=== PATIENT | female | born 1930 | race Caucasian/White ===

== ENCOUNTER → 2016-10-15 | Outpatient (CLI) | payer MEDICARE, BC ==
--- NOTE | 2016-10-16 06:49 | BD ---
EXAMINATION TYPE: MG DEXA axial skeleton. DATE OF EXAM: 10/15/2016 COMPARISON: NONE CLINICAL HISTORY: Osteoporosis with treatment Height: 60 Weight: 139.1 FRAX RISK QUESTIONS: Alcohol (3 or more units per day): no Family History (Parent hip fracture): no Glucocorticoids (More than 3mos): no (Ex: prednisone, prednisolone, methylprednisolone, dexamethasone, and hydrocortisone). History of Fracture in Adulthood: no Secondary Osteoporosis: 1. Type 1 Diabetes: no 2. Hyperthyroidism: no 3. Menopause before 45: 4. Malnutrition: no 5. Chronic liver disease: no Rheumatoid Arthritis: no Current Tobacco Use: no RISK FACTORS HISTORY OF: Hip Fracture (Right/Left): no Spine Fracture: no History of Wrist Fracture: no Surgery to Spine/Hip(right/left)/Wrist (right/left): no Family History of Osteoporosis: no Active: yes Diet low in dairy products/other sources of calcium: no Postmenopausal woman: age 55 Lost more than 2 inches in height since high school: yes Frequent falls: no Poor Health: no Hyperparathyroidism: no Adrenal Insufficiency: no MEDICATIONS: blood pressure meds Additional History: EXAM MEASUREMENTS: Bone mineral densitometry was performed using the [employer] System. Bone mineral density as measured about the Lumbar spine is: ----- L1-L4(G/cm2): 1.289 T Score Values are as follows: ----- L2: 0.6 ----- L3: 1.6 ----- L4: 0.4 ----- L1-L4: 0.9 Bone mineral density has: decreased -0.8 % since study of: 12.21.2014 Bone mineral density about the R hip (g/cm2): 0.859 Bone mineral density about the L hip (g/cm2): 0.874 T Score values are as follows: -----R Neck: -1.3 -----L Neck: -1.2 -----R Total: -0.4 -----L Total: 0.5 Bone mineral density has: increased 0.2 % since study of: 12.21.2014 IMPRESSION: Osteopenia (T Score between -2.5 and -1 as noted by T score values). Bilateral hips. There is slightly increased risk of fracture and the patient may be considered for treatment. Re-Screen 2-5 years. NOTE: T-SCORE=SD OF THE YOUNG ADULT MEAN.
== END | disposition home or self-care (01) ==
LOC: RADBDWWP 10:42
PROVIDERS: ATTEND Family Medicine
DX: Z13.820 Encounter for screening for osteoporosis (principal); M85.88 Other specified disorders of bone density and structure, other site
CPT/HCPCS: 77080

== ENCOUNTER 2017-08-30 14:55 | Inpatient (IN) | payer MEDICARE, BC ==
[2017-08-30] MEDS ORDERED: SUCCINYLCHOLINE CHLORIDE VIAL 200 MG/10 ML VIAL IV STA (15:02)
[2017-08-30] MEDS ORDERED: ETOMIDATE 2 MG/ML 10 ML VIAL IVP STA (15:02)
[2017-08-30] MEDS ORDERED: PROPOFOL 1,000 MG in EMPTY BAG 1 BAG IV ONE (15:17)
--- NOTE | 2017-08-30 15:29 | XR ---
EXAMINATION TYPE: XR chest 1V portable DATE OF EXAM: 08/30/2017 COMPARISON: NONE HISTORY: Choking on a state. Airway obstruction. TECHNIQUE: Single frontal view of the chest is obtained. FINDINGS: Heart size is normal. There is endotracheal tube that has tip in good position 3.5 cm from the yuri. There is coarsening of interstitial pulmonary markings. There is no pleural effusion. Th ere are chest leads. IMPRESSION: Endotracheal tube is in good position. Pulmonary interstitial fibrosis. No heart failure .
[2017-08-30] MEDS ORDERED: NALOXONE 0.4 MG/ML 1 ML VIAL IV PRN ×2 (15:38→16:13)
--- NOTE | 2017-08-30 15:50 | ED ---
General Adult HPI - General Stated complaint: Choking Time Seen by Provider: 08/30/17 15:15 Source: EMS, RN notes reviewed, old records reviewed - History of Present Illness Initial comments: 87-year-old female brought in with concern for foreign body aspiration. Patient was eating steak, she began to choke, family called EMS. When EMS arrived patient was unable to speak. She will was breathing with normal oxygen saturation. According to EMS she did decompensate in route. They attempted the Heimlich maneuver, this was Unsuccessful. Patient's oxygen saturation dropped into the 70s. Upon arrival patient was on a nonrebreather she was awake but unable to speak. She did cough up a large piece of steak. Patient continued to have dyspnea and hypoxia. - Related Data Home Medications Medication Instructions Recorded Confirmed Ezetimibe [Zetia] 10 mg PO DAILY 08/30/17 08/30/17 Metoprolol Tartrate [Lopressor] 50 mg PO BID 08/30/17 08/30/17 Spironolact/Hydrochlorothiazid 1 tab PO DAILY 08/30/17 08/30/17 [Aldactazide 25-25 MG] amLODIPine [Norvasc] 5 mg PO DAILY 08/30/17 08/30/17 Allergies Allergy/AdvReac Type Severity Reaction Status Date / Time No Known Allergies Allergy Verified 08/30/17 16:11 Review of Systems ROS Statement: Those systems with pertinent positive or pertinent negative responses have been documented in the HPI. ROS Other: All systems not noted in ROS Statement are negative. General Exam General appearance: in distress Head exam: Present: atraumatic, normocephalic Eye exam: Present: normal appearance, PERRL, EOMI ENT exam: Present: normal oropharynx Neck exam: Present: normal inspection Respiratory exam: Present: decreased breath sounds (Decreased breath sounds on the right lung arias, good air entry on the left) Cardiovascular Exam: Present: regular rate, normal rhythm GI/Abdominal exam: Present: soft. Absent: distended, tenderness Extremities exam: Present: normal inspection, full ROM Back exam: Present: normal inspection, full ROM Neurological exam: Present: alert. Absent: motor sensory deficit Psychiatric exam: Present: anxious Skin exam: Present: warm, dry, intact Course Vital Signs 08/30/17 08/30/17 08/30/17 15:07 15:09 15:14 Temperature Pulse Rate 86 80 80 Respiratory 12 12 12 Rate Blood Pressure 133/66 166/77 163/77 O2 Sat by Pulse 82 L 91 L 93 L Oximetry 08/30/17 08/30/17 08/30/17 15:19 15:24 15:29 Temperature Pulse Rate 76 100 76 Respiratory Rate Blood Pressure 158/77 169/84 158/73 O2 Sat by Pulse 100 100 100 Oximetry 08/30/17 08/30/17 08/30/17 15:30 15:34 15:39 Temperature 97.3 F L Pulse Rate 76 78 72 Respiratory 12 Rate Blood Pressure 144/72 173/85 118/54 O2 Sat by Pulse 100 Oximetry 08/30/17 08/30/17 08/30/17 15:42 15:46 15:49 Temperature Pulse Rate 71 67 66 Respiratory Rate Blood Pressure 118/54 110/51 102/56 O2 Sat by Pulse 99 Oximetry - Reevaluation(s) Reevaluation #1: 08/30/17 16:24 Dr. King was able to perform successful bronchoscopy in the emergency department with large piece of fatty meat removed. Patient will remain intubated and admitted to the ICU. EKG Findings - EKG Comments: EKG Findings:: EKG: Sinus rhythm with PACs no ST segment elevation, rate of 76, MN interval 150, QRS duration 86, QTC 461 Procedures - Intubation Time Out Performed: Yes Sedative: Etomidate Mg Given: 20 Paralytic: Succinylcholine Mg Given: 80 Laryngoscope: fiber optic video scope Size: 1 Assist Device Used: fiber optic device ET Tube Size: 7.5 ET Tube Uncuffed: No Other Airway Intervention: Attempt at suctioning foreign body is unsuccessful Tube Secured Depth (cm): 22 Tube Secured Location: lips Tube Placement Confirmation: visualized tube passing through cords, no breath sounds over epigastrium, confirmation by capnometry Patient Tolerated Procedure: well Intubation Complications: none (Tracheal foreign body) Medical Decision Making - Medical Decision Making 87 yo female with airway obstruction. She does clearly large piece of steak on her own. However she remains hypoxic with minimal air entry into the right lung. Patient is intubated with flexible bronchoscope. There is a foreign body in the distal trachea and right mainstem bronchus. This is unable to be suctioned. Patient is intubated with return to normal oxygenation. Case is discussed with the pulmonary music educator Dr. King who is available for emergent bronchoscopy. Patient will be admitted to the ICU for respiratory support. Chest x-ray reviewed, satisfactory endotracheal intubation. No pneumothorax. Laboratory studies are pending. Critical Care Time Critical Care Time: Yes Total Critical Care Time: 35 Disposition Clinical Impression: Respiratory failure with hypoxia, Asphyxiation, foreign body, trachea Disposition: ADMITTED IP TO THIS [facility] Condition: Serious Is patient prescribed a controlled substance at d/c from ED?: No Decision to Admit Reason: Admit from EC Decision Date: 08/30/17 Decision Time: 15:50
--- NOTE | 2017-08-30 16:03 | P.CNPUL ---
History of Present Illness Consult date: 08/30/17 Reason for consult: dyspnea, hypoxemia, abnormal CXR/CT Chief complaint: Respiratory distress History of present illness: Pulmonary consult dated 08/30/2017 87-year-old female was brought into the emergency room by EMS. She apparently was eating steak at home she apparently choked on on the steak. She apparently had some respiratory distress at the time and EMS was called and brought into the emergency room. Here in the emergency room, she had significant hypoxemia. The patient apparently was able to cough up a portion of the steak but a portion of the steak was ordered that remained in the lung. Apparently was seen by the ER physician with the flexible bronchoscope. The patient was intubated in the emergency room by the ER physician. Patient's currently on the ventilator. Vent settings are the assist control mode rate of 12 tidal volume 350 FiO2 90% PEEP of 5. The patient's chest x-ray shows a area of abnormality in the right base. I don't really know much else about this patient. We'll have really any medical history on her surgical history meds ALLERGIES, etc. I called in the bronchoscopy team. I've also a BOARD OF DIRECTORS to come to the emergency room this in case I need some help. Review of Systems ROS unobtainable: due to endotracheal tube Past Medical History Past Medical History: Unable to Obtain History of Any Multi-Drug Resistant Organisms: Unobtainable Past Surgical History: Unable to Obtain Past Psychological History: Unable to Obtain Smoking Status: Unknown if ever smoked Past Alcohol Use History: Unable to Obtain Past Drug Use History: Unable to Obtain Medications and Allergies Home Medications Medication Instructions Recorded Confirmed Type Unable To Assess [Unable to Assess] 08/30/17 08/30/17 History Allergies Allergy/AdvReac Type Severity Reaction Status Date / Time Unable to Assess Allergy Verified 08/30/17 15:51 Physical Exam Osteopathic Statement: *. No significant issues noted on an osteopathic structural exam other than those noted in the History and Physical/Consult. Vitals: Vital Signs Temp Pulse Resp BP Pulse Ox 08/30/17 15:49 66 102/56 08/30/17 15:46 67 110/51 08/30/17 15:42 71 118/54 99 08/30/17 15:39 72 118/54 08/30/17 15:34 78 12 173/85 08/30/17 15:30 97.3 F L 76 144/72 100 08/30/17 15:29 76 158/73 100 08/30/17 15:24 100 169/84 100 08/30/17 15:19 76 158/77 100 08/30/17 15:14 80 12 163/77 93 L 08/30/17 15:09 80 12 166/77 91 L 08/30/17 15:07 86 12 133/66 82 L Intake and Output 08/30/17 08/30/17 08/30/17 06:59 14:59 22:59 Intake Total 7.955 Balance 7.955 Intake: Intake, IV Titration 7.955 Amount Propofol 1,000 mg In 7.955 Empty Bag 1 bag @ 10 MCG/ KG/MIN 3.7 mls/hr IV . Q24H [facility] Rx#:[id number] Other: Weight 61.689 kg Sedated, with an oral endotracheal tube placed, on the ventilator. HEENT examination is grossly unremarkable. Mucous membranes are moist. . Neck supple. Full range of motion. No adenopathy thyromegaly or neck vein distention. Cardiovascular examination reveals regular rhythm rate. S1-S2 normal. No S3 or S4. No discernible murmur noted. Lungs reveal diminished breath sounds throughout. This some coarse rhonchi at the bases. There are more significant in the right base. Breath sounds are diminished on the right side. No wheezes. No crackles. Abdomen soft bowel sounds are heard. No masses or tenderness. Abdomen is distended. Extremities are intact. No cyanosis clubbing or edema. Skin is without rash or lesion. Neurologic examination could not be assessed. Results - Diagnostic Findings Chest x-ray: report reviewed (Chest x-ray is reviewed. Labs are pending.), image reviewed Assessment and Plan Assessment: Assessment Hypoxemic respiratory failure with intubation and mechanical ventilation for foreign body aspiration Plan: Plan dated 08/30/2017 The bronchoscopy team has been called in. I did call the BOARD OF DIRECTORS do the bedside. I'll attempt to see if we can't remove the foreign body. The patient will be sedated. The patient will likely be admitted to the intensive care unit for overnight monitoring. Additional recommendations and suggestions are forthcoming. Time with Patient: Greater than 30
--- NOTE | 2017-08-30 16:11 | P.HPIM ---
History of Present Illness H&P Date: 08/30/17 is an 87-year-old female who was admitted to the hospital for a choking episode patient was eating steak and then as per her family members and notes that the patient choked and begin to have difficulty breathing EMS was called to begin the patient begin to be hypoxic and begin to decompensate, when the patient came to the hospital begin to be hypoxic and was on a nonrebreather so the patient was intubated Before that the patient coughed up a piece of meat but continued to be hypoxic The knot picker cloth was called and the plan was to do bronchoscopy on site Review of systems unable to get the patient is currently intubated Past medical history unable to know at this time the patient is currently intubated Past surgical history also unknown Social history not known Family history not known no family available at bedside Constitutional: Intubated Eyes: Anicteric sclerae, moist conjunctiva, no lid-lag PERRLA ENMT: Cranial nerves grossly intact Neck: Supple, Lungs: Crackly bilaterally and the patient is intubated Cardiovascular: Heart regular in rate and rhythm, No murmurs Abdominal: Soft Nontender, no guarding, rebound or rigidity Abdomen moving with respiration Normoactive bowel sounds No hepatomegaly, No splenomegaly No palpable mass No abdominal wall hernia noted Skin: Normal temperature, tone, texture, Extremities: No digital cyanosis No clubbing Psychiatric: Intubated Neuro: Patient is intubated and sedated generalized weakness Vital Signs 08/30/17 08/30/17 08/30/17 15:07 15:09 15:14 Temperature Pulse Rate 86 80 80 Respiratory 12 12 12 Rate Blood Pressure 133/66 166/77 163/77 O2 Sat by Pulse 82 L 91 L 93 L Oximetry 08/30/17 08/30/17 08/30/17 15:19 15:24 15:29 Temperature Pulse Rate 76 100 76 Respiratory Rate Blood Pressure 158/77 169/84 158/73 O2 Sat by Pulse 100 100 100 Oximetry 08/30/17 08/30/17 08/30/17 15:30 15:34 15:39 Temperature 97.3 F L Pulse Rate 76 78 72 Respiratory 12 Rate Blood Pressure 144/72 173/85 118/54 O2 Sat by Pulse 100 Oximetry 08/30/17 08/30/17 08/30/17 15:42 15:46 15:49 Temperature Pulse Rate 71 67 66 Respiratory Rate Blood Pressure 118/54 110/51 102/56 O2 Sat by Pulse 99 Oximetry Assessment and plan Acute hypoxic respiratory failure obstructive due to foreign body on the bronchus , patient is currently intubated and the plan to have bronchoscopy on bedside Currently patient appears to be stable on vent No evidence of esophageal rupture or perforation at this time DVT and GI prophylaxis currently will not start the patient on Lovenox or heparin if no evidence of bleeding GI or pulmonary then we will consider that Admit the patient to the intensive care unit Past Medical History Past Medical History: Unable to Obtain History of Any Multi-Drug Resistant Organisms: Unobtainable Past Surgical History: Unable to Obtain Past Psychological History: Unable to Obtain Smoking Status: Unknown if ever smoked Past Alcohol Use History: Unable to Obtain Past Drug Use History: Unable to Obtain Medications and Allergies Home Medications Medication Instructions Recorded Confirmed Type Unable To Assess [Unable to Assess] 08/30/17 08/30/17 History Allergies Allergy/AdvReac Type Severity Reaction Status Date / Time Unable to Assess Allergy Verified 08/30/17 15:51 Physical Exam Vitals: Vital Signs Temp Pulse Resp BP Pulse Ox 08/30/17 15:49 66 102/56 08/30/17 15:46 67 110/51 08/30/17 15:42 71 118/54 99 08/30/17 15:39 72 118/54 08/30/17 15:34 78 12 173/85 08/30/17 15:30 97.3 F L 76 144/72 100 08/30/17 15:29 76 158/73 100 08/30/17 15:24 100 169/84 100 08/30/17 15:19 76 158/77 100 08/30/17 15:14 80 12 163/77 93 L 08/30/17 15:09 80 12 166/77 91 L 08/30/17 15:07 86 12 133/66 82 L Intake and Output 08/30/17 08/30/17 08/30/17 06:59 14:59 22:59 Intake Total 7.955 Balance 7.955 Intake: Intake, IV Titration 7.955 Amount Propofol 1,000 mg In 7.955 Empty Bag 1 bag @ 10 MCG/ KG/MIN 3.7 mls/hr IV . Q24H ONE Rx#:[id number] Other: Weight 61.689 kg
[2017-08-30] MEDS ORDERED: ACETAMINOPHEN TAB 325 MG TAB PO PRN (16:13)
[2017-08-30] MEDS ORDERED: ONDANSETRON 4 MG/2 ML VIAL IVP PRN (16:18)
[2017-08-30] MEDS: PROPOFOL 1,000 MG in EMPTY BAG 1 BAG IV SCH ×2 (17:00→21:19)
[2017-08-30] MEDS: SODIUM CHLORIDE 0.9% 1,000 ML IV SCH (17:03)
[2017-08-30 17:09] LABS: Glucose,Whole Blood 166 mg/dL (75-99)
--- NOTE | 2017-08-30 17:16 | XR ---
EXAMINATION TYPE: XR chest 1V portable DATE OF EXAM: 08/30/2017 COMPARISON: Today HISTORY: Tube placement TECHNIQUE: Single frontal view of the chest is obtained. FINDINGS: Endotracheal tube is in good position. There is nasogastric tube that has tip probably in the body of the stomach. There is some infiltrate in the periphery of the left midlung. Details limit ed by artifact. There are chest leads. There is no heart failure. Heart size is normal. IMPRESSION: There is probably new infiltrate in the left midlung compared to last exam 2 hours ago. No heart failure.
[2017-08-30 17:38] LABS: ABG Base Excess 0.4 mmol/L; ABG HCO3 27 mmol/L (21-25); ABG PCO2 59 mmHg (35-45); ABG PH 7.27 (7.35-7.45); ABG PO2 >400 mmHg (83-108); ABG TCO2 29 mmol/L (19-24)
[2017-08-30 17:53] LABS: Basophils % (A) 0 %; Eosinophils # (A) 0.1 k/uL (0-0.7); Eosinophils % (A) 1 %; HCT 41.2 % (34.0-46.0); HGB 13.4 gm/dL (11.4-16.0); Lymphocytes # (A) 0.9 k/uL (1.0-4.8); Lymphocytes % (A) 8 %; MCHC 32.5 g/dL (31.0-37.0); MCV 92.2 fL (80.0-100.0); Mean Platelet Volume 6.3; Monocytes # (A) 0.6 k/uL (0-1.0); Monocytes % (A) 5 %; Neutrophils # (A) 9.6 k/uL (1.3-7.7); Neutrophils % (A) 85 %; Platelet Count 176 k/uL (150-450); RBC 4.47 m/uL (3.80-5.40); RDW 13.2 % (11.5-15.5); WBC 11.3 k/uL (3.8-10.6)
[2017-08-30] MEDS ORDERED: DEXAMETHASONE SOD PHOSPHATE 4 MG/ML 1 ML VIAL IV SCH (18:00)
[2017-08-30 18:07] LABS: ALT 137 U/L (9-52); AST 141 U/L (14-36); Albumin 3.8 g/dL (3.5-5.0); Alkaline Phosphatase 50 U/L (38-126); Anion Gap 13 mmol/L; Blood Urea Nitrogen 25 mg/dL (7-17); Calcium 8.7 mg/dL (8.4-10.2); Carbon Dioxide 23 mmol/L (22-30); Chloride 105 mmol/L (98-107); Glucose 176 mg/dL (74-99); Potassium 4.6 mmol/L (3.5-5.1); Sodium 141 mmol/L (137-145); Total Bilirubin 0.5 mg/dL (0.2-1.3); Total Protein 6.7 g/dL (6.3-8.2)
[2017-08-30 19:07] LABS: Glucose,Whole Blood 148 mg/dL (75-99)
[2017-08-30] MEDS: INSULIN ASPART 100 UNIT/ML 1 ML 10 ML VIAL SQ SCH (19:11)
[2017-08-30] MEDS: IPRATROPIUM-ALBUTEROL 3 ML NEB INHALATION SCH ×2 (19:16→23:56)
[2017-08-30] MEDS: DEXAMETHASONE SOD PHOSPHATE 10 MG/ML 1 ML VIAL IV SCH (19:33)
[2017-08-30 20:37] LABS: Appearance,Urine Clear (Clear); Bilirubin,Urine Negative (Negative); Blood,Urine Negative (Negative); Color,Urine Yellow; Glucose,Urine (UA) Negative (Negative); Ketones,Urine Negative (Negative); Leukocyte Esterase,Urine Negative (Negative); Nitrite,Urine Negative (Negative); Protein,Urine Trace (Negative); Specific Gravity,Urine 1.016 (1.001-1.035); Urobilinogen,Urine <2.0 mg/dL (<2.0)
[2017-08-30] MEDS: CHLORHEXIDINE GLUCONATE 15 ML CUP MUCOUS MEM SCH (21:22)
--- NOTE | 2017-08-30 21:27 | PCN ---
PROCEDURE NOTE PROCEDURE PERFORMED: Bronchoscopy, airway examination, therapeutic lavage, removal foreign body from the airway. PREOP DIAGNOSIS: Foreign body obstruction. POSTOP DIAGNOSIS: Foreign body obstruction. DESCRIPTION OF PROCEDURE: Procedure was done in the emergency room. The bronch team was here. I was assisted by Sole BOOTH. After the patient was adequately sedated, and on the ventilator on 100%, the bronchoscope was inserted through the bronchoscope adapter connected to the endotracheal tube. I was able to note the foreign body in the distal trachea right above the tracheal yuri. It appeared whitish. Anyway, I was able to grab the foreign body with the biopsy forceps. At that point, I brought it up to the tip of the endotracheal tube and then the entire bronchoscope biopsy forceps foreign body. The endotracheal tube was removed. We are able to remove the foreign body without difficulty. We quickly reintubated the patient. The patient will be kept on the ventilator overnight. I will add some updrafts and some antibiotics. We put some propofol on for the sedation. Additional recommendations and suggestions are forthcoming. Prognosis is guarded. There was no immediate complication. MMODL / IJN: [id number] /
[2017-08-31] LABS: Glucose,Whole Blood 159 mg/dL (75-99)
[2017-08-31] MEDS ORDERED: PIPERACILLIN-TAZOBACTAM 3.375 GM in DEXTROSE/WATER 1 50ML.BAG IVPB SCH
[2017-08-31] MEDS: INSULIN ASPART 100 UNIT/ML 1 ML 10 ML VIAL SQ SCH ×5 (00:14→23:30)
[2017-08-31] MEDS: PIPERACILLIN-TAZOBACTAM 3.375 GM in DEXTROSE/WATER 1 50ML.BAG IVPB SCH ×4 (00:15→23:20)
[2017-08-31] MEDS: HEPARIN SODIUM,PORCINE 5,000 UNIT/ML 1 ML VIAL SQ SCH ×4 (00:15→23:20)
[2017-08-31] MEDS: DEXAMETHASONE SOD PHOSPHATE 10 MG/ML 1 ML VIAL IV SCH ×5 (00:15→23:20)
[2017-08-31] MEDS: IPRATROPIUM-ALBUTEROL 3 ML NEB INHALATION SCH ×5 (03:44→20:05)
[2017-08-31 04:25] LABS: ABG Base Excess -0.6 mmol/L; ABG HCO3 24 mmol/L (21-25); ABG PCO2 41 mmHg (35-45); ABG PH 7.39 (7.35-7.45); ABG PO2 116 mmHg (83-108); ABG TCO2 26 mmol/L (19-24)
[2017-08-31 04:27] LABS: Basophils % (A) 0 %; Eosinophils % (A) 0 %; HCT 42.4 % (34.0-46.0); HGB 14.5 gm/dL (11.4-16.0); Lymphocytes # (A) 0.5 k/uL (1.0-4.8); Lymphocytes % (A) 5 %; MCHC 34.2 g/dL (31.0-37.0); MCV 90.8 fL (80.0-100.0); Mean Platelet Volume 6.4; Monocytes # (A) 0.2 k/uL (0-1.0); Monocytes % (A) 2 %; Neutrophils # (A) 8.9 k/uL (1.3-7.7); Neutrophils % (A) 92 %; Platelet Count 142 k/uL (150-450); RBC 4.68 m/uL (3.80-5.40); RDW 13.7 % (11.5-15.5); WBC 9.7 k/uL (3.8-10.6)
[2017-08-31 04:39] LABS: Anion Gap 16 mmol/L; Blood Urea Nitrogen 25 mg/dL (7-17); Calcium 9.1 mg/dL (8.4-10.2); Carbon Dioxide 24 mmol/L (22-30); Chloride 102 mmol/L (98-107); Glucose 180 mg/dL (74-99); Magnesium 1.7 mg/dL (1.6-2.3); Phosphorus 4.2 mg/dL (2.5-4.5); Potassium 3.6 mmol/L (3.5-5.1); Sodium 142 mmol/L (137-145)
[2017-08-31] MEDS: PROPOFOL 1,000 MG in EMPTY BAG 1 BAG IV SCH (05:42)
[2017-08-31] MEDS: SODIUM CHLORIDE 0.9% 1,000 ML IV SCH ×2 (05:42→17:52)
[2017-08-31] MEDS ORDERED: POTASSIUM BICARBONATE/CIT AC 20 MEQ TABLET.EFF NG-TUBE SCH ×2 (06:00→10:00)
[2017-08-31 06:12] LABS: Glucose,Whole Blood 211 mg/dL (75-99)
[2017-08-31] MEDS: MAGNESIUM SULFATE-D5W PMX 1 GM in DEXTROSE/WATER 1 100ML.BAG IVPB SCH ×2 (07:13→08:39)
[2017-08-31] MEDS: CHLORHEXIDINE GLUCONATE 15 ML CUP MUCOUS MEM SCH (08:22)
[2017-08-31] MEDS: PANTOPRAZOLE 40 MG/10 ML VIAL IV SCH (08:23)
--- NOTE | 2017-08-31 08:33 | XR ---
EXAMINATION TYPE: XR chest 1V portable DATE OF EXAM: 08/31/2017 COMPARISON: 08/30/2017 HISTORY: Tube placement TECHNIQUE: Single frontal view of the chest is obtained. FINDINGS: ET tube approximately 1.6 cm above yuri. NG tube noted. Bilateral infiltrate and small e ffusion. Related for underlying COPD. Mild venous congestion not excluded. Arthropathy of the shoulde rs. IMPRESSION: Bilateral infiltrate and pleural effusion stable. Underlying venous congestion not exclu ded.
[2017-08-31] MEDS ORDERED: PANTOPRAZOLE 40 MG/10 ML VIAL IVP SCH (09:00)
[2017-08-31 11:04] LABS: ABG HCO3 22 mmol/L (21-25); ABG Oxygen Saturation 98.6 % (94-97); ABG PCO2 36 mmHg (35-45); ABG PO2 121 mmHg (83-108); ABG TCO2 23 mmol/L (19-24)
[2017-08-31 11:49] LABS: Glucose,Whole Blood 203 mg/dL (75-99)
--- NOTE | 2017-08-31 11:55 | P.PN ---
Subjective Principal diagnosis: Patient is intubated sedated does not appear to be in distress Constitutional: Intubated sedated Eyes: Anicteric sclerae, moist conjunctiva, no lid-lag PERRLA ENMT: NC/AT Oropharynx clear, no erythema, exudates Neck: supple Lungs: No wheezes slight crackles bilaterally Cardiovascular: Heart regular in rate and rhythm, No murmurs, gallops, or rubs No peripheral edema Abdominal: Soft Nontender, no guarding, rebound or rigidity Abdomen moving with respiration Normoactive bowel sounds No hepatomegaly, No splenomegaly No palpable mass No abdominal wall hernia noted Skin: Normal temperature, tone, texture, turgor No induration No subcutaneous nodules No rash, lesions No ulcers Extremities: No tenderness no obvious edema Psychiatric: Intubated Neuro: Generalized weakness Assessment and plan Acute hypoxic respiratory failure obstructive due to foreign body on the bronchus , status post bronchoscopy and removal of the foreign body Currently patient appears to be stable on vent No evidence of esophageal rupture or perforation at this time DVT and GI prophylaxis Continue to monitor the patient in the intensive care unit and management as per ICU team Objective - Vital Signs Vital signs: Vital Signs Temp 99.6 F 08/31/17 08:00 Pulse 110 H 08/31/17 11:50 Resp 21 08/31/17 11:00 BP 155/57 08/31/17 11:00 Pulse Ox 98 08/31/17 11:00 Intake & Output 08/30/17 08/31/17 08/31/17 18:59 06:59 18:59 Intake Total 904.578 6501.690 666.400 Output Total 25 807 266 Balance 161.428 483.690 400.400 Weight 63.2 kg 62.9 kg 62.9 kg Intake: IV 150 1160.0 625 Magnesium Sulfate-D5w Pmx 200 1 gm In Dextrose/Water 1 100ml.bag @ 100 mls/hr IVPB Q1H [facility] Rx#: [id number] Piperacillin-Tazobactam 3 50.0 50 .375 gm In Dextrose/Water 1 50ml.bag @ 12.5 mls/hr IVPB Q8HR [facility] Rx#: [id number] Sodium Chloride 0.9% 1, 150 1110 375 000 ml @ 75 mls/hr IV . [id number] [facility] Rx#:[id number] Intake, IV Titration 36.428 130.690 41.400 Amount Propofol 1,000 mg In 13.628 Empty Bag 1 bag @ 10 MCG/ KG/MIN 3.7 mls/hr IV . Q24H ONE Rx#:[id number] Propofol 1,000 mg In 22.8 130.690 41.400 Empty Bag 1 bag @ Titrate IV .Q0M [facility] Rx#: [id number] Output: Gastric Drainage 400 Urine 25 407 266 Other: Voiding Method Indwelling Catheter Indwelling Catheter Indwelling Catheter - Labs CBC & Chem 7: 08/31/17 04:02 08/31/17 08:58 Labs: Abnormal Lab Results - Last 24 Hours (Table) 08/30/17 08/30/17 08/30/17 Range/Units 17:01 17:01 17:07 WBC 11.3 H (3.8-10.6) k/uL Plt Count (150-450) k/uL Neutrophils # 9.6 H (1.3-7.7) k/uL Lymphocytes # 0.9 L (1.0-4.8) k/uL ABG pH (7.35-7.45) ABG pCO2 (35-45) mmHg ABG pO2 (83-108) mmHg ABG HCO3 (21-25) mmol/L ABG Total CO2 (19-24) mmol/L ABG O2 Saturation (94-97) % BUN 25 H (7-17) mg/dL Glucose 176 H (74-99) mg/dL POC Glucose (mg/dL) 166 H (75-99) mg/dL AST 141 H (14-36) U/L ALT 137 H (9-52) U/L Urine Protein (Negative) 08/30/17 08/30/17 08/30/17 Range/Units 17:34 19:05 20:25 WBC (3.8-10.6) k/uL Plt Count (150-450) k/uL Neutrophils # (1.3-7.7) k/uL Lymphocytes # (1.0-4.8) k/uL ABG pH 7.27 L (7.35-7.45) ABG pCO2 59 H (35-45) mmHg ABG pO2 >400 H (83-108) mmHg ABG HCO3 27 H (21-25) mmol/L ABG Total CO2 29 H (19-24) mmol/L ABG O2 Saturation 100.0 H (94-97) % BUN (7-17) mg/dL Glucose (74-99) mg/dL POC Glucose (mg/dL) 148 H (75-99) mg/dL AST (14-36) U/L ALT (9-52) U/L Urine Protein Trace H (Negative) 08/30/17 08/31/17 08/31/17 Range/Units 23:58 04:02 04:02 WBC (3.8-10.6) k/uL Plt Count 142 L (150-450) k/uL Neutrophils # 8.9 H (1.3-7.7) k/uL Lymphocytes # 0.5 L (1.0-4.8) k/uL ABG pH (7.35-7.45) ABG pCO2 (35-45) mmHg ABG pO2 (83-108) mmHg ABG HCO3 (21-25) mmol/L ABG Total CO2 (19-24) mmol/L ABG O2 Saturation (94-97) % BUN 25 H (7-17) mg/dL Glucose 180 H (74-99) mg/dL POC Glucose (mg/dL) 159 H (75-99) mg/dL AST (14-36) U/L ALT (9-52) U/L Urine Protein (Negative) 08/31/17 08/31/17 08/31/17 Range/Units 04:19 06:11 11:02 WBC (3.8-10.6) k/uL Plt Count (150-450) k/uL Neutrophils # (1.3-7.7) k/uL Lymphocytes # (1.0-4.8) k/uL ABG pH (7.35-7.45) ABG pCO2 (35-45) mmHg ABG pO2 116 H 121 H (83-108) mmHg ABG HCO3 (21-25) mmol/L ABG Total CO2 26 H (19-24) mmol/L ABG O2 Saturation 99.0 H 98.6 H (94-97) % BUN (7-17) mg/dL Glucose (74-99) mg/dL POC Glucose (mg/dL) 211 H (75-99) mg/dL AST (14-36) U/L ALT (9-52) U/L Urine Protein (Negative) 08/31/17 Range/Units 11:47 WBC (3.8-10.6) k/uL Plt Count (150-450) k/uL Neutrophils # (1.3-7.7) k/uL Lymphocytes # (1.0-4.8) k/uL ABG pH (7.35-7.45) ABG pCO2 (35-45) mmHg ABG pO2 (83-108) mmHg ABG HCO3 (21-25) mmol/L ABG Total CO2 (19-24) mmol/L ABG O2 Saturation (94-97) % BUN (7-17) mg/dL Glucose (74-99) mg/dL POC Glucose (mg/dL) 203 H (75-99) mg/dL AST (14-36) U/L ALT (9-52) U/L Urine Protein (Negative) Microbiology - Last 24 Hours (Table) 08/30/17 16:55 Gram Stain - Preliminary Sputum Sputum Culture - Preliminary
--- NOTE | 2017-08-31 12:08 | P.PN ---
Subjective Progress Note Date: 08/31/17 87-year-old female patient, suffered an acute choking episode while eating steak at home, given Heimlich maneuver, following that she was moved to the emergency department where the patient was intubated and placed on a mechanical ventilator. Airway was secured. Furthermore bronchoscopy was done and the residual food particles were removed bronchoscopically. This morning, the patient is off sedation pH is following commands. Interactive. She is off sedation for now. Afebrile. Hemodynamically stable. No pressors. No fever or chills. Chest x-ray from today shows bilateral infiltrates and pleural effusion lung bases more so on the right. The patient is on IV Zosyn. No fever. No chills. No chest pain. Her blood gases from today showed a pH of 7.39 with a pCO2 of 41 and pO2 116. This was on FiO2 of 35% on assist control mode of ventilation with a tidal volume 400 and at the rate of 16. The patient was taken off sedation. The patient was given a sedation holiday. Weaning parameters were checked. The patient was given a spelled his breathing trial. She less in for a total of 30 minutes following which the blood gases showed no significant respiratory acidosis and the pH was at 7.4 with a pCO2 of 36 and pO2 121. Based on that the patient was extubated. Family is aware and they're the bedside. The patient has no significant leukocytosis. Hemoglobin is stable for now. The neck is a bit sore and swollen.. The patient passed a leak test prior to her getting extubated. Objective - Vital Signs Vital signs: Vital Signs Temp 99.6 F 08/31/17 08:00 Pulse 110 H 08/31/17 11:50 Resp 21 08/31/17 11:00 BP 155/57 08/31/17 11:00 Pulse Ox 99 08/31/17 11:35 Intake & Output 08/30/17 08/31/17 08/31/17 18:59 06:59 18:59 Intake Total 037.754 2763.690 666.400 Output Total 25 807 266 Balance 161.428 483.690 400.400 Weight 63.2 kg 62.9 kg 62.9 kg Intake: IV 150 1160.0 625 Magnesium Sulfate-D5w Pmx 200 1 gm In Dextrose/Water 1 100ml.bag @ 100 mls/hr IVPB Q1H [facility] Rx#: [id number] Piperacillin-Tazobactam 3 50.0 50 .375 gm In Dextrose/Water 1 50ml.bag @ 12.5 mls/hr IVPB Q8HR [facility] Rx#: [id number] Sodium Chloride 0.9% 1, 150 1110 375 000 ml @ 75 mls/hr IV . [id number] [facility] Rx#:[id number] Intake, IV Titration 36.428 130.690 41.400 Amount Propofol 1,000 mg In 13.628 Empty Bag 1 bag @ 10 MCG/ KG/MIN 3.7 mls/hr IV . Q24H [facility] Rx#:[id number] Propofol 1,000 mg In 22.8 130.690 41.400 Empty Bag 1 bag @ Titrate IV .Q0M [facility] Rx#: [id number] Output: Gastric Drainage 400 Urine 25 407 266 Other: Voiding Method Indwelling Catheter Indwelling Catheter Indwelling Catheter - Exam Gen. appearance awake, comfortable likely distress. Intubated on a mechanical ventilator. Head exam was generally normal. There was no scleral icterus or corneal arcus. Mucous membranes were moist. Neck was supple and without jugular venous distension, thyromegaly, or carotid bruits. Carotids were easily palpable bilaterally. There was no adenopathy. The submental area and anterior part of the area is a bit swollen yet that is no tenderness. There is no hematoma. There is no palpable masses or lesions. Lungs were clear to auscultation and percussion, and with normal diaphragmatic excursion. No wheezes or rales were noted. Cardiac exam revealed the PMI to be normally situated and sized. The rhythm was regular and no extrasystoles were noted during several minutes of auscultation. The first and second heart sounds were normal and physiologic splitting of the second heart sound was noted. There were no murmurs, rubs, clicks, or gallops. Abdominal exam revealed normal bowel sounds. The abdomen was soft, non-tender, and without masses, organomegaly, or appreciable enlargement of the abdominal aorta. Examination of the extremities revealed easily palpable radial, femoral and pedal pulses. There was no cyanosis, clubbing or edema. Examination of the skin revealed no evidence of significant rashes, suspicious appearing nevi or other concerning lesions. Neurologically the patient is awake and alert and there is no focal neurological deficits. - Labs CBC & Chem 7: 08/31/17 04:02 08/31/17 08:58 Labs: Abnormal Lab Results - Last 24 Hours (Table) 08/30/17 08/30/17 08/30/17 Range/Units 17:01 17:01 17:07 WBC 11.3 H (3.8-10.6) k/uL Plt Count (150-450) k/uL Neutrophils # 9.6 H (1.3-7.7) k/uL Lymphocytes # 0.9 L (1.0-4.8) k/uL ABG pH (7.35-7.45) ABG pCO2 (35-45) mmHg ABG pO2 (83-108) mmHg ABG HCO3 (21-25) mmol/L ABG Total CO2 (19-24) mmol/L ABG O2 Saturation (94-97) % BUN 25 H (7-17) mg/dL Glucose 176 H (74-99) mg/dL POC Glucose (mg/dL) 166 H (75-99) mg/dL AST 141 H (14-36) U/L ALT 137 H (9-52) U/L Urine Protein (Negative) 08/30/17 08/30/17 08/30/17 Range/Units 17:34 19:05 20:25 WBC (3.8-10.6) k/uL Plt Count (150-450) k/uL Neutrophils # (1.3-7.7) k/uL Lymphocytes # (1.0-4.8) k/uL ABG pH 7.27 L (7.35-7.45) ABG pCO2 59 H (35-45) mmHg ABG pO2 >400 H (83-108) mmHg ABG HCO3 27 H (21-25) mmol/L ABG Total CO2 29 H (19-24) mmol/L ABG O2 Saturation 100.0 H (94-97) % BUN (7-17) mg/dL Glucose (74-99) mg/dL POC Glucose (mg/dL) 148 H (75-99) mg/dL AST (14-36) U/L ALT (9-52) U/L Urine Protein Trace H (Negative) 08/30/17 08/31/17 08/31/17 Range/Units 23:58 04:02 04:02 WBC (3.8-10.6) k/uL Plt Count 142 L (150-450) k/uL Neutrophils # 8.9 H (1.3-7.7) k/uL Lymphocytes # 0.5 L (1.0-4.8) k/uL ABG pH (7.35-7.45) ABG pCO2 (35-45) mmHg ABG pO2 (83-108) mmHg ABG HCO3 (21-25) mmol/L ABG Total CO2 (19-24) mmol/L ABG O2 Saturation (94-97) % BUN 25 H (7-17) mg/dL Glucose 180 H (74-99) mg/dL POC Glucose (mg/dL) 159 H (75-99) mg/dL AST (14-36) U/L ALT (9-52) U/L Urine Protein (Negative) 08/31/17 08/31/17 08/31/17 Range/Units 04:19 06:11 11:02 WBC (3.8-10.6) k/uL Plt Count (150-450) k/uL Neutrophils # (1.3-7.7) k/uL Lymphocytes # (1.0-4.8) k/uL ABG pH (7.35-7.45) ABG pCO2 (35-45) mmHg ABG pO2 116 H 121 H (83-108) mmHg ABG HCO3 (21-25) mmol/L ABG Total CO2 26 H (19-24) mmol/L ABG O2 Saturation 99.0 H 98.6 H (94-97) % BUN (7-17) mg/dL Glucose (74-99) mg/dL POC Glucose (mg/dL) 211 H (75-99) mg/dL AST (14-36) U/L ALT (9-52) U/L Urine Protein (Negative) 08/31/17 Range/Units 11:47 WBC (3.8-10.6) k/uL Plt Count (150-450) k/uL Neutrophils # (1.3-7.7) k/uL Lymphocytes # (1.0-4.8) k/uL ABG pH (7.35-7.45) ABG pCO2 (35-45) mmHg ABG pO2 (83-108) mmHg ABG HCO3 (21-25) mmol/L ABG Total CO2 (19-24) mmol/L ABG O2 Saturation (94-97) % BUN (7-17) mg/dL Glucose (74-99) mg/dL POC Glucose (mg/dL) 203 H (75-99) mg/dL AST (14-36) U/L ALT (9-52) U/L Urine Protein (Negative) Microbiology - Last 24 Hours (Table) 08/30/17 16:55 Gram Stain - Preliminary Sputum Sputum Culture - Preliminary Assessment and Plan Plan: Assessment 1 acute choking event 2 acute hypoxic respiratory failure secondary to above, post choking event. Patient also developed bilateral lower lobe pulmonary infiltrates. I do suspect development of an aspiration pneumonia. Patient is covered with broad- spectrum antibiotics. 3 acute ventilator-dependent respiratory failure secondary to above 4 emergent bronchoscopy and removal of foreign body/food particle 5 hypertension 6 hyperlipidemia Plan The patient got extubated. After doing a sedation holiday and checking weaning parameters and giving it with his breathing trial and doing a leak test/cuff leak test, with decide to extubate the patient become monitoring this patient here in the ICU. We'll monitor pressors status. Watch for any signs of stridor. I do not think there is any evidence of upper airway obstruction at this point in time. We'll keep her in ICU for 24 hours. Continued IV Zosyn. The patient developed bilateral lower lobe pulmonary infiltrate that needs to be washed and look for any aspiration pneumonia development. We'll continue the Decadron for now for upper airway edema/swelling. We'll continue to follow. Keep the patient ICU for another 24 hours. I discussed the case with the niece at the bedside. Critically care evaluation done and 35-40 minutes. Time with Patient: Greater than 30
[2017-08-31] MEDS ORDERED: FUROSEMIDE 10 MG/ML 4 ML VIAL IV STA ×2 (12:43)
[2017-08-31] MEDS ORDERED: ACETAMINOPHEN IV (For NPO) 1,000 MG in EMPTY BAG 1 BAG IVPB ONE (12:54)
[2017-08-31] MEDS: METOPROLOL TARTRATE 5 MG/5 ML VIAL IVP SCH ×3 (14:12→23:21)
[2017-08-31 17:44] LABS: Glucose,Whole Blood 203 mg/dL (75-99)
[2017-08-31] MEDS: POTASSIUM CHLORIDE 10 MEQ in WATER FOR INJECTION 1 100ML.BAG IVPB SCH ×2 (19:36→23:21)
[2017-08-31 23:30] LABS: Glucose,Whole Blood 246 mg/dL (75-99)
[2017-09-01] MEDS ORDERED: IPRATROPIUM-ALBUTEROL 3 ML NEB INHALATION PRN (00:27)
[2017-09-01] MEDS: IPRATROPIUM-ALBUTEROL 3 ML NEB INHALATION SCH ×5 (00:39→20:14)
[2017-09-01 04:25] LABS: Basophils % (A) 0 %; Eosinophils # (A) 0.1 k/uL (0-0.7); Eosinophils % (A) 0 %; HCT 38.4 % (34.0-46.0); Lymphocytes # (A) 0.7 k/uL (1.0-4.8); Lymphocytes % (A) 6 %; MCH 30.5 pg (25.0-35.0); MCHC 33.9 g/dL (31.0-37.0); MCV 89.8 fL (80.0-100.0); Mean Platelet Volume 6.3; Monocytes # (A) 0.4 k/uL (0-1.0); Monocytes % (A) 3 %; Neutrophils # (A) 11.1 k/uL (1.3-7.7); Neutrophils % (A) 90 %; Platelet Count 156 k/uL (150-450); RBC 4.28 m/uL (3.80-5.40); RDW 13.4 % (11.5-15.5); WBC 12.3 k/uL (3.8-10.6)
[2017-09-01 04:30] LABS: Anion Gap 12 mmol/L; Blood Urea Nitrogen 27 mg/dL (7-17); Calcium 9.2 mg/dL (8.4-10.2); Carbon Dioxide 26 mmol/L (22-30); Chloride 102 mmol/L (98-107); Glucose 188 mg/dL (74-99); Magnesium 2.1 mg/dL (1.6-2.3); Phosphorus 3.3 mg/dL (2.5-4.5); Potassium 3.6 mmol/L (3.5-5.1); Sodium 140 mmol/L (137-145)
[2017-09-01] MEDS ORDERED: Potassium Replacement Protocol 1 EACH MISC MISCELLANE PRN (04:36)
[2017-09-01] MEDS: POTASSIUM CHLORIDE 10 MEQ in WATER FOR INJECTION 1 100ML.BAG IVPB SCH ×2 (04:53→08:37)
[2017-09-01] MEDS: METOPROLOL TARTRATE 5 MG/5 ML VIAL IVP SCH (06:30)
[2017-09-01 07:16] LABS: Glucose,Whole Blood 220 mg/dL (75-99)
[2017-09-01] MEDS: INSULIN ASPART 100 UNIT/ML 1 ML 10 ML VIAL SQ SCH ×4 (08:35→20:51)
[2017-09-01] MEDS: PANTOPRAZOLE 40 MG/10 ML VIAL IV SCH (08:36)
[2017-09-01] MEDS: HEPARIN SODIUM,PORCINE 5,000 UNIT/ML 1 ML VIAL SQ SCH ×2 (08:37→16:42)
--- NOTE | 2017-09-01 09:09 | XR ---
EXAMINATION TYPE: XR chest 1V portable DATE OF EXAM: 09/01/2017 COMPARISON: 08/31/2017 HISTORY: Shortness of breath TECHNIQUE: Single frontal view of the chest is obtained. FINDINGS: ET tube approximately 1.6 cm above yuri. NG tube noted. Bilateral infiltrate and small e ffusion. Orally for underlying COPD. Interstitium improved. Arthropathy of the shoulders. IMPRESSION: Bilateral infiltrate and pleural effusion stable.
[2017-09-01] MEDS: PIPERACILLIN-TAZOBACTAM 3.375 GM in DEXTROSE/WATER 1 50ML.BAG IVPB SCH ×2 (09:27→16:42)
--- NOTE | 2017-09-01 09:44 | P.PN ---
Subjective Progress Note Date: 09/01/17 Principal diagnosis: Acute hypoxic respiratory failure secondary to an acute choking event, possible aspiration pneumonia 87-year-old female patient, suffered an acute choking episode while eating steak at home, given Heimlich maneuver, following that she was moved to the emergency department where the patient was intubated and placed on a mechanical ventilator. Airway was secured. Furthermore bronchoscopy was done and the residual food particles were removed bronchoscopically. This morning, the patient is off sedation pH is following commands. Interactive. She is off sedation for now. Afebrile. Hemodynamically stable. No pressors. No fever or chills. Chest x-ray from today shows bilateral infiltrates and pleural effusion lung bases more so on the right. The patient is on IV Zosyn. No fever. No chills. No chest pain. Her blood gases from today showed a pH of 7.39 with a pCO2 of 41 and pO2 116. This was on FiO2 of 35% on assist control mode of ventilation with a tidal volume 400 and at the rate of 16. The patient was taken off sedation. The patient was given a sedation holiday. Weaning parameters were checked. The patient was given a spelled his breathing trial. She less in for a total of 30 minutes following which the blood gases showed no significant respiratory acidosis and the pH was at 7.4 with a pCO2 of 36 and pO2 121. Based on that the patient was extubated. Family is aware and they're the bedside. The patient has no significant leukocytosis. Hemoglobin is stable for now. The neck is a bit sore and swollen.. The patient passed a leak test prior to her getting extubated. On 09/01/2017 patient seen again in follow-up in intensive care unit. She was successfully extubated yesterday on 08/31/2017 and she is currently on 2 L per nasal cannula with a pulse ox of 95%, she is awake, alert, oriented 3. She denies any dyspnea and denies any chest pain. Afebrile, however she remains tachycardic with a heart rate anywhere from 120s to 170s BPM. EKG showed sinus tachycardia with ST depression in inferior, anterior and lateral leads. Clinically patient denies any palpitations, she denies any chest discomfort. She is calm and comfortable, resting in bed, a bit emotional about the events leading up to her hospitalization. Today's chest x-ray has been reviewed by Dr. Ferris, shows improvement in the appearance of bilateral infiltrates and pleural effusions. Yesterday patient received on dose of IV Lasix, and she produced 2526 mL of urine output in the last 24 hours. Blood culture is negative at the 24-hour coy, urine and sputum cultures are pending. Patient continues on empiric antibiotics in the form of Zosyn, nebulized bronchodilators. On today's exam lung sounds are positive for some bibasilar crackles, no wheezes, no rhonchi. She is tolerating liquid diet, we will progress the diet as tolerated, the neck swelling it has subsided, patient reports no difficulty swallowing. Objective - Vital Signs Vital signs: Vital Signs Temp 97.5 F L 09/01/17 08:00 Pulse 98 09/01/17 09:00 Resp 19 09/01/17 09:00 BP 172/86 09/01/17 09:00 Pulse Ox 95 09/01/17 09:00 Intake & Output 08/31/17 09/01/17 09/01/17 18:59 06:59 18:59 Intake Total 1026.400 620 720 Output Total 1741 785 220 Balance -714.600 -165 500 Weight 62.9 kg 63 kg Intake: IV 985 520 80 Magnesium Sulfate-D5w Pmx 200 1 gm In Dextrose/Water 1 100ml.bag @ 100 mls/hr IVPB Q1H [facility] Rx#: [id number] Piperacillin-Tazobactam 3 100 .375 gm In Dextrose/Water 1 50ml.bag @ 12.5 mls/hr IVPB Q8HR [facility] Rx#: [id number] Sodium Chloride 0.9% 1, 685 520 80 000 ml @ 40 mls/hr IV . Q24H [facility] Rx#:[id number] Intake, IV Titration 41.400 100 Amount Potassium Chloride 10 meq 100 In Water For Injection 1 100ml.bag @ 100 mls/hr IVPB Q1H [facility] Rx#: [id number] Propofol 1,000 mg In 41.400 Empty Bag 1 bag @ Titrate IV .Q0M [facility] Rx#: [id number] Oral 100 540 Output: Urine 1741 785 220 Other: Voiding Method Indwelling Catheter Indwelling Catheter - Exam Gen. appearance awake, comfortable, currently on 2 L per nasal cannula, no signs of any distress. . Head exam was generally normal. There was no scleral icterus or corneal arcus. Mucous membranes were moist. Neck was supple and without jugular venous distension, thyromegaly, or carotid bruits. Carotids were easily palpable bilaterally. There was no adenopathy. The submental area and anterior part of the area is a bit swollen yet that is no tenderness. There is no hematoma. There is no palpable masses or lesions. Lungs were clear to auscultation and percussion, and with normal diaphragmatic excursion. A few bibasilar rales Cardiac exam revealed the PMI to be normally situated and sized. The rhythm was regular and no extrasystoles were noted during several minutes of auscultation. The first and second heart sounds were normal and physiologic splitting of the second heart sound was noted. There were no murmurs, rubs, clicks, or gallops. Abdominal exam revealed normal bowel sounds. The abdomen was soft, non-tender, and without masses, organomegaly, or appreciable enlargement of the abdominal aorta. Examination of the extremities revealed easily palpable radial, femoral and pedal pulses. There was no cyanosis, clubbing or edema. Examination of the skin revealed no evidence of significant rashes, suspicious appearing nevi or other concerning lesions. Neurologically the patient is awake and alert and there is no focal neurological deficits. - Labs CBC & Chem 7: 09/01/17 04:00 09/01/17 04:00 Labs: Abnormal Lab Results - Last 24 Hours (Table) 08/31/17 08/31/17 08/31/17 Range/Units 11:02 11:47 17:41 WBC (3.8-10.6) k/uL Neutrophils # (1.3-7.7) k/uL Lymphocytes # (1.0-4.8) k/uL ABG pO2 121 H (83-108) mmHg ABG O2 Saturation 98.6 H (94-97) % BUN (7-17) mg/dL Glucose (74-99) mg/dL POC Glucose (mg/dL) 203 H 203 H (75-99) mg/dL 08/31/17 09/01/17 09/01/17 Range/Units 23:29 04:00 04:00 WBC 12.3 H (3.8-10.6) k/uL Neutrophils # 11.1 H (1.3-7.7) k/uL Lymphocytes # 0.7 L (1.0-4.8) k/uL ABG pO2 (83-108) mmHg ABG O2 Saturation (94-97) % BUN 27 H (7-17) mg/dL Glucose 188 H (74-99) mg/dL POC Glucose (mg/dL) 246 H (75-99) mg/dL 09/01/17 Range/Units 07:14 WBC (3.8-10.6) k/uL Neutrophils # (1.3-7.7) k/uL Lymphocytes # (1.0-4.8) k/uL ABG pO2 (83-108) mmHg ABG O2 Saturation (94-97) % BUN (7-17) mg/dL Glucose (74-99) mg/dL POC Glucose (mg/dL) 220 H (75-99) mg/dL Microbiology - Last 24 Hours (Table) 08/30/17 17:16 Blood Culture - Preliminary Blood No Growth after 24 hours 08/30/17 17:01 Blood Culture - Preliminary Blood No Growth after 24 hours 08/30/17 16:55 Gram Stain - Preliminary Sputum Sputum Culture - Preliminary 08/30/17 20:25 Urine Culture - Preliminary Urine,Catheterized Assessment and Plan Plan: Assessment: 1 acute choking event 2 acute hypoxic respiratory failure secondary to above, post choking event. Patient also developed bilateral lower lobe pulmonary infiltrates. I do suspect development of an aspiration pneumonia. Patient is covered with broad- spectrum antibiotics. Today's chest x-ray on 09/01/2017 shows improvement in the appearance of bilateral lower lobe infiltrates and pleural effusions, patient was given 1 dose of IV Lasix yesterday 3 acute ventilator-dependent respiratory failure secondary to above, recovered. Patient was successfully extubated on 08/31/2017, and today on 09/01/2017 patient on 2 L per nasal cannula, tolerating extubation quite well. 4 emergent bronchoscopy and removal of foreign body/food particle 5 sinus tachycardia, with heart rate ranging from 120-170 BPM, ST depression in the inferior, anterior and lateral leads 5 hypertension 6 hyperlipidemia Plan Patient denies any acute complaints, no dyspnea, no chest pain. She is tolerating extubation quite well. She was given a single dose of IV Lasix yesterday, and on today's chest x-ray there has been improvement in the appearance of the bilateral lower lobe infiltrates and pleural effusions. Patient remains tachycardic however she denies any palpitations, or chest pain. We will check her thyroid function, obtain TSH, she had been started on IV metoprolol yesterday, we will switch her to oral metoprolol 50 twice a day, we' ll consult cardiology, and obtain serial cardiac enzymes and troponins. Otherwise continue with current medical treatment, continue Zosyn, so for the microbiology remains negative. Clinically patient denies any dyspnea, she is afebrile, vital signs are stable. Increase activity as tolerated, progressive diet as tolerated. She may be considered for transfer out of the intensive care later on today, provided she remains stable. I performed a history & physical examination of the patient and discussed their management with my nurse practitioner, Betty Cherry. I reviewed the nurse practitioner's note and agree with the documented findings and plan of care. Lung sounds are positive for bibasilar crackles. The findings and the impression was discussed with the patient. I attest to the documentation by the nurse practitioner. Time with Patient: Greater than 30
[2017-09-01] MEDS: METOPROLOL TARTRATE 50 MG TAB PO SCH ×2 (09:46→20:41)
--- NOTE | 2017-09-01 11:05 | P.PN ---
Subjective Progress Note Date: 09/01/17 Principal diagnosis: Choking event Patient is an 87-year-old female with past medical history of hypertension and dyslipidemia who was brought into the emergency via EMS after choking on a steak at home. She developed respiratory distress and EMS was called. On arrival to the ER she had significant hypoxemia and was able to cough up a portion of the state. However another portion of steak was seen on flexible bronchoscope by the ED physician. The patient was intubated in the emergency room. Dr. King was called. He preformed a bronchoscopy and another piece of steak was removed from the distal trachea. She required reintubation. She was able to be extubated after 1 day on the vent. After extubation she was noted to have elevated heart rate. She had been off of her metoprolol was started on IV metoprolol. She had recurrent elevated heart rate. EKG was performed on [address] segment depression. Echocardiogram was performed on the morning of 09/01 and troponins were ordered by the pulmonary team. Patient seen and examined at bedside. She is sitting up in the chair. She states she has no complaints currently. She denies any chest pain or shortness of breath. No nausea or vomiting. She's been tolerating her diet. Nursing performed a bedside swallow evaluation and she passed. Patient also denies any coughing. Per nursing the patient has had an infrequent cough. Objective - Vital Signs Vital signs: Vital Signs Temp 97.5 F L 09/01/17 08:00 Pulse 133 H 09/01/17 10:00 Resp 23 09/01/17 10:00 BP 148/70 09/01/17 10:00 Pulse Ox 96 09/01/17 10:00 Intake & Output 08/31/17 09/01/17 09/01/17 18:59 06:59 18:59 Intake Total 1026.400 620 772.5 Output Total 1741 785 570 Balance -714.600 -165 202.5 Weight 62.9 kg 63 kg Intake: IV 985 520 132.5 Magnesium Sulfate-D5w Pmx 200 1 gm In Dextrose/Water 1 100ml.bag @ 100 mls/hr IVPB Q1H [facility] Rx#: [id number] Piperacillin-Tazobactam 3 100 12.5 .375 gm In Dextrose/Water 1 50ml.bag @ 12.5 mls/hr IVPB Q8HR [facility] Rx#: [id number] Sodium Chloride 0.9% 1, 685 520 120 000 ml @ 40 mls/hr IV . Q24H [facility] Rx#:[id number] Intake, IV Titration 41.400 100 Amount Potassium Chloride 10 meq 100 In Water For Injection 1 100ml.bag @ 100 mls/hr IVPB Q1H [facility] Rx#: [id number] Propofol 1,000 mg In 41.400 Empty Bag 1 bag @ Titrate IV .Q0M [facility] Rx#: [id number] Oral 100 540 Output: Urine 1741 785 570 Other: Voiding Method Indwelling Catheter Indwelling Catheter Indwelling Catheter - Exam General: non toxic, no distress, appears at stated age Derm: Erythema without warmth over tracheal area, warm, dry Head: atraumatic, normocephalic, symmetric Eyes: EOMI, no lid lag, anicteric sclera Mouth: no lip lesion, mucus membranes moist Cardiovascular: S1S2 reg, no murmur, positive posterior tibial pulse bilateral, Lungs: Crackles, Bilateral bases, no rhonchi, no rales , no accessory muscle use Abdominal: soft, nontender to palpation, no guarding, no appreciable organomegaly Ext: no gross muscle atrophy, no edema, no contractures Neuro: CN II-XI grossly intact, no focal neuro deficits Psych: Alert, oriented, appropriate affect - Labs CBC & Chem 7: 09/01/17 04:00 09/01/17 04:00 Labs: Abnormal Lab Results - Last 24 Hours (Table) 08/31/17 08/31/17 08/31/17 Range/Units 11:02 11:47 17:41 WBC (3.8-10.6) k/uL Neutrophils # (1.3-7.7) k/uL Lymphocytes # (1.0-4.8) k/uL ABG pO2 121 H (83-108) mmHg ABG O2 Saturation 98.6 H (94-97) % BUN (7-17) mg/dL Glucose (74-99) mg/dL POC Glucose (mg/dL) 203 H 203 H (75-99) mg/dL 08/31/17 09/01/17 09/01/17 Range/Units 23:29 04:00 04:00 WBC 12.3 H (3.8-10.6) k/uL Neutrophils # 11.1 H (1.3-7.7) k/uL Lymphocytes # 0.7 L (1.0-4.8) k/uL ABG pO2 (83-108) mmHg ABG O2 Saturation (94-97) % BUN 27 H (7-17) mg/dL Glucose 188 H (74-99) mg/dL POC Glucose (mg/dL) 246 H (75-99) mg/dL 09/01/17 Range/Units 07:14 WBC (3.8-10.6) k/uL Neutrophils # (1.3-7.7) k/uL Lymphocytes # (1.0-4.8) k/uL ABG pO2 (83-108) mmHg ABG O2 Saturation (94-97) % BUN (7-17) mg/dL Glucose (74-99) mg/dL POC Glucose (mg/dL) 220 H (75-99) mg/dL Microbiology - Last 24 Hours (Table) 08/30/17 16:55 Gram Stain - Final Sputum Sputum Culture - Final 08/30/17 17:16 Blood Culture - Preliminary Blood No Growth after 24 hours 08/30/17 17:01 Blood Culture - Preliminary Blood No Growth after 24 hours 08/30/17 20:25 Urine Culture - Preliminary Urine,Catheterized Assessment and Plan Assessment: Aspiration event with probable aspiration pneumonia due to choking -Steak removed via bronchoscopy -On Zosyn -Critical care is following -Chest x-ray shows improvement Acute hypoxic respiratory failure secondary to above, -Lasix IV push times one was given on 08/31. Sinus tachycardia with ST segment depression -Metoprolol resumed by critical care -Awaiting cardiology evaluation echocardiogram results -ST segment depression noted on EKG Hypertension, controlled -Resume metoprolol -Resume spironolactone/HCTZ and norvasc if BP stable on metropolol Dyslipidemia - resume zetia It has come to light that the patients PCP is Dr. Bennett. I have paged him and awaiting call back. DVT prophylaxis: Heparin Discussed with: Patient, nursing Anticipated discharge: 1-[address]: home A total of 35 minutes was spent on the care of this complex patient more than 50 % of the time was spent in counseling and care coordination.
[2017-09-01 11:21] LABS: Glucose,Whole Blood 198 mg/dL (75-99)
[2017-09-01 11:39] LABS: Creatine Kinase MB 5.9 ng/mL (0.0-2.4)
[2017-09-01 11:40] LABS: Troponin I 0.083 ng/mL (0.000-0.034)
--- NOTE | 2017-09-01 11:41 | CONS ---
CONSULTATION Mrs. Smith is an 87-year-old female who presented with a choking episode while she was eating and she had respiratory distress and became hypoxic. Cardiology was consulted on account of episodes of sinus tachycardia with ST depression and a borderline troponin. She denies any chest discomfort at this time. REVIEW OF SYSTEMS: Currently, no fever, chills, or rigors. Had a little bit of cough and expectoration. No nausea, vomiting, or diarrhea. No hematuria or dysuria. No strokes or seizures. No skin lesions. No musculoskeletal complaints. She is sitting comfortably in a chair and she gives a full history. PAST HISTORY: Past history of hypertension, dyslipidemia. MEDICATIONS: Her mediations at home including Aldactazide, amlodipine, metoprolol 50 mg twice daily and Zetia. ALLERGIES: No known drug allergies. PHYSICAL EXAMINATION: On examination initially, her blood pressure is 133/66 mmHg, but recently her blood pressure has been elevated 172/86 mmHg, 148/70, 145/63 mmHg. Pulse rate went up to 133 beats per minute, sinus tachycardia. Currently it is in the 70s. Head and neck examination is normal. She is an obese lady. Heart sounds S1, S2 are soft. Breath sounds are reduced bilaterally. Abdomen is soft. Extremities: No edema. The 12-lead ECG showed sinus tachycardia with ST depression. IMPRESSION: 1. Patient admitted with acute respiratory distress on account of a choking episode. 2. Sinus tachycardia with ST depression with borderline abnormal troponin. 3. History of hypertension. SUGGEST: Start atorvastatin 20 mg p.o. daily. If her blood pressure is elevated, we will maximize antihypertensive therapy and I will start her on angiotensin receptor blockers at that point. A 2-D echo and Doppler study and troponins. Thank you for the consultation. MMODL / IJN: [id number] /
[2017-09-01 12:15] LABS: T4, Free (Free Thyroxine) 1.22 ng/dL (0.78-2.19)
--- NOTE | 2017-09-01 12:57 | ECHOF ---
Referral Reason:tachycardia MEASUREMENTS -------- HEIGHT: 157.5 cm WEIGHT: 62.6 kg BP: 148/70 IVSd: 1.4 cm (0.6 - 1.1) LVIDd: 3.0 cm (3.9 - 5.3) LVPWd: 1.5 cm (0.6 - 1.1) IVSs: 1.8 cm LVIDs: 2.4 cm LVPWs: 1.4 cm LAESV Index (A-L): 32.31 ml/m Ao Diam: 2.8 cm (2.0 - 3.7) AV Cusp: 1.8 cm (1.5 - 2.6) LA Diam: 3.9 cm (2.7 - 3.8) MV EXCURSION: 14.924 mm (> 18.000) MV EF SLOPE: 118 mm/s (70 - 150) EPSS: 0.2 cm AV maxP.38 mmHg AV meanP.81 mmHg RAP: 5.00 mmHg RVSP: 54.66 mmHg FINDINGS -------- Undetermined rhythm. This was a technically adequate study. The left ventricular size is normal. There is mild concentric left ventricular hypertrophy. Overa ll left ventricular systolic function is low-normal with, an EF between 50 - 55 %. The right ventricle is normal in size. The left atrial size is normal. LA is midly dilated 29-33ml/m2. The right atrial size is normal. There is mild aortic stenosis present. Peak/mean gradient across the Aortic Valve is 17.38mmHg / 11 .81mmHg. Mild mitral annular calcification present. Mild mitral regurgitation is present. Mild tricuspid regurgitation present. There is moderate pulmonary hypertension. The right ventric ular systolic pressure, as measured by Doppler, is 54.66mmHg. Trace/mild (physiologic) pulmonic regurgitation. The aortic root size is normal. There is no pericardial effusion. CONCLUSIONS -------- 1. The left ventricular size is normal. 2. There is mild concentric left ventricular hypertrophy. 3. Overall left ventricular systolic function is low-normal with, an EF between 50 - 55 %. 4. The right ventricle is normal in size. 5. The left atrial size is normal. 6. LA is midly dilated 29-33ml/m2. 7. The right atrial size is normal. 8. There is mild aortic stenosis present. 9. Peak/mean gradient across the Aortic Valve is 17.38mmHg / 11.81mmHg. 10. Mild mitral annular calcification present. 11. Mild mitral regurgitation is present. 12. Mild tricuspid regurgitation present. 13. There is moderate pulmonary hypertension. 14. The right ventricular systolic pressure, as measured by Doppler, is 54.66mmHg. 15. Trace/mild (physiologic) pulmonic regurgitation. 16. The aortic root size is normal. 17. There is no pericardial effusion. FRONT SERVICES AGENT: Jeri Tillman RDCS
[2017-09-01] MEDS ORDERED: ALBUMIN HUMAN 5% 250 ML IVPB ONE (15:08)
[2017-09-01 16:49] LABS: Creatine Kinase MB 6.4 ng/mL (0.0-2.4); Troponin I 0.233 ng/mL (0.000-0.034)
[2017-09-01 17:09] LABS: Glucose,Whole Blood 192 mg/dL (75-99)
[2017-09-01] MEDS: SODIUM CHLORIDE 0.9% 1,000 ML IV SCH (19:59)
[2017-09-01 20:49] LABS: Glucose,Whole Blood 210 mg/dL (75-99)
[2017-09-01] MEDS ORDERED: ATORVASTATIN 20 MG TAB PO SCH (21:00)
[2017-09-02] MEDS: PIPERACILLIN-TAZOBACTAM 3.375 GM in DEXTROSE/WATER 1 50ML.BAG IVPB SCH ×2 (00:11→08:53)
[2017-09-02] MEDS: HEPARIN SODIUM,PORCINE 5,000 UNIT/ML 1 ML VIAL SQ SCH ×2 (00:12→08:52)
[2017-09-02 05:01] LABS: Basophils % (A) 0 %; Eosinophils # (A) 0.1 k/uL (0-0.7); Eosinophils % (A) 0 %; HCT 40.3 % (34.0-46.0); HGB 13.2 gm/dL (11.4-16.0); Lymphocytes # (A) 1.3 k/uL (1.0-4.8); Lymphocytes % (A) 11 %; MCH 29.4 pg (25.0-35.0); MCHC 32.9 g/dL (31.0-37.0); MCV 89.4 fL (80.0-100.0); Mean Platelet Volume 6.6; Monocytes # (A) 0.7 k/uL (0-1.0); Monocytes % (A) 6 %; Neutrophils # (A) 9.4 k/uL (1.3-7.7); Neutrophils % (A) 81 %; Platelet Count 153 k/uL (150-450); RDW 13.3 % (11.5-15.5); WBC 11.6 k/uL (3.8-10.6)
[2017-09-02 05:07] LABS: Anion Gap 10 mmol/L; Blood Urea Nitrogen 26 mg/dL (7-17); Calcium 9.3 mg/dL (8.4-10.2); Carbon Dioxide 27 mmol/L (22-30); Chloride 103 mmol/L (98-107); Glucose 161 mg/dL (74-99); Magnesium 2.2 mg/dL (1.6-2.3); Phosphorus 3.4 mg/dL (2.5-4.5); Potassium 4.7 mmol/L (3.5-5.1); Sodium 140 mmol/L (137-145)
[2017-09-02 05:34] LABS: Creatine Kinase MB 5.2 ng/mL (0.0-2.4); Troponin I 0.23 ng/mL (0.000-0.034)
[2017-09-02 06:47] LABS: Glucose,Whole Blood 171 mg/dL (75-99)
[2017-09-02 07:43] LABS: Glucose,Whole Blood 138 mg/dL (75-99)
[2017-09-02] MEDS: IPRATROPIUM-ALBUTEROL 3 ML NEB INHALATION SCH ×4 (08:48→19:39)
[2017-09-02] MEDS: INSULIN ASPART 100 UNIT/ML 1 ML 10 ML VIAL SQ SCH ×2 (08:52→14:40)
[2017-09-02] MEDS: METOPROLOL TARTRATE 50 MG TAB PO SCH (08:53)
[2017-09-02] MEDS: PANTOPRAZOLE 40 MG/10 ML VIAL IV SCH (08:54)
--- NOTE | 2017-09-02 09:25 | XR ---
EXAMINATION TYPE: XR chest 1V DATE OF EXAM: 09/02/2017 COMPARISON: 09/01/2017 HISTORY: Shortness of breath TECHNIQUE: Single frontal view of the chest is obtained. FINDINGS: There is persistent bibasilar infiltrate and tiny effusion. Heart size is enlarged. Athero sclerotic change aorta. Hypertrophic and degenerative change of the spine. Arthropathy of the shoulde rs. No pneumothorax or overt failure. Correlate for underlying COPD. IMPRESSION: Stable bilateral infiltrate and small effusion.
--- NOTE | 2017-09-02 11:42 | P.DS ---
Providers Date of admission: 08/30/17 15:38 Attending physician: Salome Ying MD Consults: 08/30/17 15:35 Consult Physician Stat Consulting Provider: Suraj King Consult Reason/Comments: Airway obstruction, and foreign body Do you want consulting provider notified?: Yes 09/01/17 09:11 Consult Physician Routine Consulting Provider: Ishmael Roche Consult Reason/Comments: tachycardia 120-170's, EKG changes Do you want consulting provider notified?: Yes Primary care physician: Blayne Bennett - Discharge Diagnosis(es) (1) Asphyxiation, foreign body, trachea Current Visit: Yes Status: Acute (2) Respiratory failure with hypoxia Current Visit: Yes Status: Acute Hospital Course: This is a discharge summary and 87-year-old white female since admitted for aspiration of solid food causing ex excision. The patient had procedure done which removed the asphyxiating product. The patient was kept on the ventilator for about 24-48 hours and was weaned off appropriately. The patient is not emulating appropriately eating without aspiration and placed on appropriate antibiotic treatment. The patient will be discharged in stable condition to follow-up with me in about one week. Patient Condition at Discharge: Stable Plan - Discharge Summary Discharge Rx Participant: No New Discharge Prescriptions: New Amoxic-Pot Clav 875-125Mg [Augmentin 875-125] 1 tab PO Q12HR #10 tablet Atorvastatin [Lipitor] 20 mg PO HS #30 tab Aspirin [Adult Low Dose Aspirin EC] 81 mg PO DAILY #30 tablet. Continue amLODIPine [Norvasc] 5 mg PO DAILY Spironolact/Hydrochlorothiazid [Aldactazide 25-25 MG] 1 tab PO DAILY Metoprolol Tartrate [Lopressor] 50 mg PO BID Discontinued Ezetimibe [Zetia] 10 mg PO DAILY Discharge Medication List Metoprolol Tartrate [Lopressor] 50 mg PO BID 08/30/17 [History] Spironolact/Hydrochlorothiazid [Aldactazide 25-25 MG] 1 tab PO DAILY 08/30/17 [ History] amLODIPine [Norvasc] 5 mg PO DAILY 08/30/17 [History] Amoxic-Pot Clav 875-125Mg [Augmentin 875-125] 1 tab PO Q12HR #10 tablet [Rx] Aspirin [Adult Low Dose Aspirin EC] 81 mg PO DAILY #30 tablet. 09/02/17 [Rx] Atorvastatin [Lipitor] 20 mg PO HS #30 tab 09/02/17 [Rx] Follow up Appointment(s)/Referral(s): Ishmael Roche MD [STAFF PHYSICIAN] - 1 Week Blayne Bennett MD [Primary Care Provider] - 1-2 Days Suraj King DO [Doctor of Osteopathic Medicine] - 1 Week Activity/Diet/Wound Care/Special Instructions: regular diet activity as tolerated Discharge Disposition: HOME SELF-CARE
[2017-09-02 12:36] LABS: Glucose,Whole Blood 156 mg/dL (75-99)
--- NOTE | 2017-09-02 13:21 | P.PN ---
Subjective Progress Note Date: 09/02/17 Principal diagnosis: Acute hypoxic respiratory failure secondary to an acute choking event, possible aspiration pneumonia 87-year-old female patient, suffered an acute choking episode while eating steak at home, given Heimlich maneuver, following that she was moved to the emergency department where the patient was intubated and placed on a mechanical ventilator. Airway was secured. Furthermore bronchoscopy was done and the residual food particles were removed bronchoscopically. This morning, the patient is off sedation pH is following commands. Interactive. She is off sedation for now. Afebrile. Hemodynamically stable. No pressors. No fever or chills. Chest x-ray from today shows bilateral infiltrates and pleural effusion lung bases more so on the right. The patient is on IV Zosyn. No fever. No chills. No chest pain. Her blood gases from today showed a pH of 7.39 with a pCO2 of 41 and pO2 116. This was on FiO2 of 35% on assist control mode of ventilation with a tidal volume 400 and at the rate of 16. The patient was taken off sedation. The patient was given a sedation holiday. Weaning parameters were checked. The patient was given a spelled his breathing trial. She less in for a total of 30 minutes following which the blood gases showed no significant respiratory acidosis and the pH was at 7.4 with a pCO2 of 36 and pO2 121. Based on that the patient was extubated. Family is aware and they're the bedside. The patient has no significant leukocytosis. Hemoglobin is stable for now. The neck is a bit sore and swollen.. The patient passed a leak test prior to her getting extubated. On 09/01/2017 patient seen again in follow-up in intensive care unit. She was successfully extubated yesterday on 08/31/2017 and she is currently on 2 L per nasal cannula with a pulse ox of 95%, she is awake, alert, oriented 3. She denies any dyspnea and denies any chest pain. Afebrile, however she remains tachycardic with a heart rate anywhere from 120s to 170s BPM. EKG showed sinus tachycardia with ST depression in inferior, anterior and lateral leads. Clinically patient denies any palpitations, she denies any chest discomfort. She is calm and comfortable, resting in bed, a bit emotional about the events leading up to her hospitalization. Today's chest x-ray has been reviewed by Dr. Ferris, shows improvement in the appearance of bilateral infiltrates and pleural effusions. Yesterday patient received on dose of IV Lasix, and she produced 2526 mL of urine output in the last 24 hours. Blood culture is negative at the 24-hour coy, urine and sputum cultures are pending. Patient continues on empiric antibiotics in the form of Zosyn, nebulized bronchodilators. On today's exam lung sounds are positive for some bibasilar crackles, no wheezes, no rhonchi. She is tolerating liquid diet, we will progress the diet as tolerated, the neck swelling it has subsided, patient reports no difficulty swallowing. On 09/02/2017 patient seen in follow-up in intensive care unit. She is awake, alert, oriented 3, sitting up in the recliner, in no acute distress. No dyspnea, no chest pain, room air pulse ox is 98%, lung sounds are positive for some crackles at the bilateral posterior bases. No fever or chills, no chest pain. He remains in sinus rhythm, and today's her heart rate is controlled with a rate of 70 BPM. Patient was seen by cardiology in consultation. 2-D echocardiogram was completed, and showed low normal left ventricular systolic function with an EF between 50-55%. It was moderate pulmonary hypertension with right ventricular systolic pressure of 54.6 mmhg. patient was restarted on her home dose metoprolol 50 mg twice daily. 3 sets of cardiac enzymes and troponins were completed, and troponins peaked at 0.233. CK-MB peaked at 6.4. Patient denies any chest discomfort, or dyspnea. She is tolerating oral diet. Today's chest x-ray was reviewed and showed small bilateral infiltrate and small effusions, but overall improved compared to yesterday's exam. Blood, sputum and urine cultures remain negative, and patient is receiving empiric antibiotics in the form of Zosyn. Objective - Vital Signs Vital signs: Vital Signs Temp 98.7 F 09/02/17 08:00 Pulse 71 09/02/17 09:00 Resp 19 09/02/17 09:00 BP 149/69 09/02/17 09:00 Pulse Ox 98 09/02/17 08:48 Intake & Output 09/01/17 09/02/17 09/02/17 18:59 06:59 18:59 Intake Total 1825.0 280 90 Output Total 870 650 0 Balance 955.0 -370 90 Weight 63.4 kg Intake: IV 475.0 280 90 Piperacillin-Tazobactam 3 75.0 50 .375 gm In Dextrose/Water 1 50ml.bag @ 12.5 mls/hr IVPB Q8HR [facility] Rx#: [id number] Sodium Chloride 0.9% 1, 400 280 40 000 ml @ 40 mls/hr IV . Q24H [facility]ARA Rx#:[id number] Intake, IV Titration 200 Amount Potassium Chloride 10 meq 200 In Water For Injection 1 100ml.bag @ 100 mls/hr IVPB Q1H [facility]OMARA Rx#: [id number] Oral 1150 Output: Urine 870 650 0 Other: Voiding Method Bedside Commode Bedside Commode Bedside Commode # Voids 1 - Exam Gen. appearance awake, comfortable, currently on 2 L per nasal cannula, no signs of any distress. . Head exam was generally normal. There was no scleral icterus or corneal arcus. Mucous membranes were moist. Neck was supple and without jugular venous distension, thyromegaly, or carotid bruits. Carotids were easily palpable bilaterally. There was no adenopathy. The submental area and anterior part of the area that was previously slightly swollen without tenderness, continues to improve, and the swelling continues to subside. There is no hematoma. There is no palpable masses or lesions. Lungs were clear to auscultation and percussion, and with normal diaphragmatic excursion. A few bibasilar rales Cardiac exam revealed the PMI to be normally situated and sized. The rhythm was regular and no extrasystoles were noted during several minutes of auscultation. The first and second heart sounds were normal and physiologic splitting of the second heart sound was noted. There were no murmurs, rubs, clicks, or gallops. Abdominal exam revealed normal bowel sounds. The abdomen was soft, non-tender, and without masses, organomegaly, or appreciable enlargement of the abdominal aorta. Examination of the extremities revealed easily palpable radial, femoral and pedal pulses. There was no cyanosis, clubbing or edema. Examination of the skin revealed no evidence of significant rashes, suspicious appearing nevi or other concerning lesions. Neurologically the patient is awake and alert and there is no focal neurological deficits. - Labs CBC & Chem 7: 09/02/17 04:32 09/02/17 04:32 Labs: Abnormal Lab Results - Last 24 Hours (Table) 09/01/17 09/01/17 09/01/17 Range/Units 10:12 10:12 11:16 WBC (3.8-10.6) k/uL Neutrophils # (1.3-7.7) k/uL BUN (7-17) mg/dL Glucose (74-99) mg/dL POC Glucose (mg/dL) 198 H (75-99) mg/dL Total Creatine Kinase 170 H (30-135) U/L CK-MB (CK-2) 5.9 H* (0.0-2.4) ng/mL Troponin I 0.083 H* (0.000-0.034) ng/mL TSH 0.097 L (0.465-4.680) mIU/L 09/01/17 09/01/17 09/01/17 Range/Units 16:01 17:04 20:47 WBC (3.8-10.6) k/uL Neutrophils # (1.3-7.7) k/uL BUN (7-17) mg/dL Glucose (74-99) mg/dL POC Glucose (mg/dL) 192 H 210 H (75-99) mg/dL Total Creatine Kinase 229 H (30-135) U/L CK-MB (CK-2) 6.4 H* (0.0-2.4) ng/mL Troponin I 0.233 H* (0.000-0.034) ng/mL TSH (0.465-4.680) mIU/L 09/02/17 09/02/17 09/02/17 Range/Units 04:32 04:32 04:32 WBC 11.6 H (3.8-10.6) k/uL Neutrophils # 9.4 H (1.3-7.7) k/uL BUN 26 H (7-17) mg/dL Glucose 161 H (74-99) mg/dL POC Glucose (mg/dL) (75-99) mg/dL Total Creatine Kinase 141 H (30-135) U/L CK-MB (CK-2) 5.2 H* (0.0-2.4) ng/mL Troponin I 0.230 H* (0.000-0.034) ng/mL TSH (0.465-4.680) mIU/L 09/02/17 09/02/17 Range/Units 06:45 07:42 WBC (3.8-10.6) k/uL Neutrophils # (1.3-7.7) k/uL BUN (7-17) mg/dL Glucose (74-99) mg/dL POC Glucose (mg/dL) 171 H 138 H (75-99) mg/dL Total Creatine Kinase (30-135) U/L CK-MB (CK-2) (0.0-2.4) ng/mL Troponin I (0.000-0.034) ng/mL TSH (0.465-4.680) mIU/L Microbiology - Last 24 Hours (Table) 08/30/17 17:16 Blood Culture - Preliminary Blood No Growth after 48 hours 08/30/17 17:01 Blood Culture - Preliminary Blood No Growth after 48 hours 08/30/17 20:25 Urine Culture - Final Urine,Catheterized 08/30/17 16:55 Gram Stain - Final Sputum Sputum Culture - Final Assessment and Plan Plan: Assessment: 1 acute choking event 2 acute hypoxic respiratory failure secondary to above, post choking event. Patient also developed bilateral lower lobe pulmonary infiltrates. I do suspect development of an aspiration pneumonia. Patient is covered with broad- spectrum antibiotics. Today's chest x-ray on 09/01/2017 shows improvement in the appearance of bilateral lower lobe infiltrates and pleural effusions, patient was given 1 dose of IV Lasix yesterday 3 acute ventilator-dependent respiratory failure secondary to above, recovered. Patient was successfully extubated on 08/31/2017, and today on 09/01/2017 patient on 2 L per nasal cannula, tolerating extubation quite well. 4 emergent bronchoscopy and removal of foreign body/food particle 5 sinus tachycardia, with heart rate ranging from 120-170 BPM, ST depression in the inferior, anterior and lateral leads, resolved, and the patient is currently in sinus rhythm with a rate of 70 BPM, patient was restarted on home dose metoprolol 50 mg twice daily, and was seen by cardiology in consultation. Denied any palpitations or chest pain 5 hypertension 6 hyperlipidemia Plan Patient remains stable, denies any dyspnea, chest pain, or any other acute complaints. No events overnight, she is on room air. Today's chest x-ray shows further improvement in the appearance of bibasilar infiltrates and pleural effusions. Increase activity as tolerated, continue nebulized bronchodilators, continue Zosyn. Denies any chest pain or palpitations. Heart rate is better controlled today, patient's troponins were borderline, TSH was low, but free T4 was within normal limits. Cardiology is following, 2-D echo results were reviewed. Patient will be seen for outpatient cardiac evaluation. From pulmonary standpoint she remains stable, and could be discharged home today. Follow-up with Dr. King in the office in one week I performed a history & physical examination of the patient and discussed their management with my nurse practitioner, Betty Cherry. I reviewed the nurse practitioner's note and agree with the documented findings and plan of care. Lung sounds are positive for bibasilar crackles. The findings and the impression was discussed with the patient. I attest to the documentation by the nurse practitioner. Time with Patient: Less than 30
--- NOTE | 2017-09-02 13:52 | P.DS ---
Providers Date of admission: 08/30/17 15:38 Expected date of discharge: 09/02/17 Attending physician: Salome Ying MD Consults: 08/30/17 15:35 Consult Physician Stat Consulting Provider: Suraj King Consult Reason/Comments: Airway obstruction, and foreign body Do you want consulting provider notified?: Yes 09/01/17 09:11 Consult Physician Routine Consulting Provider: Ishmael Roche Consult Reason/Comments: tachycardia 120-170's, EKG changes Do you want consulting provider notified?: Yes Primary care physician: Blayne Bennett - Black Diagnosis(es) (1) Asphyxiation, foreign body, trachea Current Visit: Yes Status: Acute (2) Respiratory failure with hypoxia Current Visit: Yes Status: Acute (3) Aspiration pneumonia Current Visit: Yes Status: Acute (4) Sinus tachycardia Current Visit: Yes Status: Acute (5) ST segment changes on electrocardiogram Current Visit: Yes Status: Acute (6) HTN (hypertension) Current Visit: Yes Status: Acute (7) HLD (hyperlipidemia) Current Visit: Yes Status: Acute Hospital Course: Patient is an 87-year-old female with past medical history of hypertension and dyslipidemia who was brought into the emergency via EMS after choking on a steak at home. She developed respiratory distress and EMS was called. On arrival to the ER she had significant hypoxemia and was able to cough up a portion of the steak. However another portion of steak was seen on flexible bronchoscope by the ED physician. The patient was intubated in the emergency room. Dr. King was called. He preformed a bronchoscopy and another piece of steak was removed from the distal trachea. She required reintubation and transferred to the ICU. She was able to be extubated after 1 day on the vent. After extubation she was noted to have an elevated heart rate. She had been off of her metoprolol was started on IV metoprolol. She had recurrent elevated heart rate. EKG was performed on 08/31 and 09/[address] segment depression. Echocardiogram was performed on the morning of 09/01 and EF was 50-55% with mild valvular disease and moderate Pulmonary HTN. and was and troponins were marginally elevated. She was seen by cardiology and outpatient follow up was recommended along with statin instead of zetia. She was started on a baby aspirin. She was determined stable for discharge home. She will complete a course of Augmentin for her aspiration pneumonia. She will also follow-up with Dr. Boles in 1 week to ensure that her pneumonia has cleared. She will also follow-up with Dr. Bacon for further evaluation of her ST segment depression. Patient seen and examined at bedside. No chest pain, shortness breath, nausea, or vomiting. Tolerating her diet well. Family present at bedside and all questions answered. Patient will follow-up with Dr. Bennett after discharge. Vital signs reviewed and stable. General: non toxic, no distress, appears at stated age Derm: warm, dry Head: atraumatic, normocephalic, symmetric Eyes: EOMI, no lid lag, anicteric sclera Mouth: no lip lesion, mucus membranes moist Cardiovascular: S1S2 reg, no murmur, positive posterior tibial pulse bilateral, Lungs: Decreased breath sounds bilateral bases, no rhonchi, no rales , no accessory muscle use Abdominal: soft, nontender to palpation, no guarding, no appreciable organomegaly Ext: no gross muscle atrophy], [no edema], [no contractures] Neuro: [ CN II-XI grossly intact], [no focal neuro deficits] Psych: [Alert], [oriented], [appropriate affect] A total of 35 minutes of time were spent preparing this complex discharge summary . Pertinent Studies: Echocardiogram-ejection fraction 50-55%, mild valvular disease, moderate pulmonary hypertension Chest x-ray 09/02-stable bilateral infiltrate and small effusion Procedures: Bronchoscopy with removal of foreign body 08/30 Patient Condition at Discharge: Stable Plan - Discharge Summary Discharge Rx Participant: No New Discharge Prescriptions: New Amoxic-Pot Clav 875-125Mg [Augmentin 875-125] 1 tab PO Q12HR #10 tablet Atorvastatin [Lipitor] 20 mg PO HS #30 tab Aspirin [Adult Low Dose Aspirin EC] 81 mg PO DAILY #30 tablet. Continue amLODIPine [Norvasc] 5 mg PO DAILY Spironolact/Hydrochlorothiazid [Aldactazide 25-25 MG] 1 tab PO DAILY Metoprolol Tartrate [Lopressor] 50 mg PO BID Discontinued Ezetimibe [Zetia] 10 mg PO DAILY Discharge Medication List Metoprolol Tartrate [Lopressor] 50 mg PO BID 08/30/17 [History] Spironolact/Hydrochlorothiazid [Aldactazide 25-25 MG] 1 tab PO DAILY 08/30/17 [ History] amLODIPine [Norvasc] 5 mg PO DAILY 08/30/17 [History] Amoxic-Pot Clav 875-125Mg [Augmentin 875-125] 1 tab PO Q12HR #10 tablet [Rx] Aspirin [Adult Low Dose Aspirin EC] 81 mg PO DAILY #30 tablet. 09/02/17 [Rx] Atorvastatin [Lipitor] 20 mg PO HS #30 tab 09/02/17 [Rx] Follow up Appointment(s)/Referral(s): Ishmael Roche MD [STAFF PHYSICIAN] - 09/09/17 2:15 pm Blayne Bennett MD [Primary Care Provider] - 09/03/17 10:30 am Suraj King DO [Doctor of Osteopathic Medicine] - 09/09/17 9:00 am Patient Instructions/Handouts: Hypertension (DC), Hypoxia (GEN), Hyperlipidemia (DC) Activity/Diet/Wound Care/Special Instructions: regular diet activity as tolerated Discharge Disposition: HOME SELF-CARE
[2017-09-02 14:31] LABS: Glucose,Whole Blood 189 mg/dL (75-99)
[2017-09-02 15:53] VITALS: BMI 25.5
[2017-09-02 16:30] VITALS: BP 112/54; TEMP 98.2
[2017-09-02 17:38] VITALS: PULSE 67; RESP 18
== END 2017-09-02 05:45 | disposition home or self-care (01) | DRG 208 ==
LOC: EC 14:55 → 6ICU 15:38
PROVIDERS: ADMIT Internal Medicine; ATTEND Internal Medicine
PROC: 0BC18ZZ Extirpation of Matter from Trachea, Via Natural or Artificial Opening Endoscopic (ICD-10-PCS; 2017-08-30)
PROC: 5A1945Z Respiratory Ventilation, 24-96 Consecutive Hours (ICD-10-PCS; principal; 2017-08-30 16:00)
PROC: 0BH18EZ Insertion of Endotracheal Airway into Trachea, Via Natural or Artificial Opening Endoscopic (ICD-10-PCS; principal; 2017-08-30 16:00)
DX: J96.01 Acute respiratory failure with hypoxia (principal); J69.0 Pneumonitis due to inhalation of food and vomit; J90 Pleural effusion, not elsewhere classified; T17.420A Food in trachea causing asphyxiation, initial encounter; E78.5 Hyperlipidemia, unspecified; I10 Essential (primary) hypertension; I27.20 Pulmonary hypertension, unspecified; Z79.899 Other long term (current) drug therapy; R77.8 Other specified abnormalities of plasma proteins; R00.0 Tachycardia, unspecified
CPT/HCPCS: 31624; 36600; 71045; 80048; 80053; 81003; 82550; 82553; 82805; 83735; 84100; 84132; 84439; 84443; 84484; 85025; 87040; 87070; 87086; 87205; 93005; 93306; 94002; 94003; 94640

== ENCOUNTER 2017-12-22 09:29 | Emergency (ER) | payer MEDICARE, BC ==
[2017-12-22] MEDS ORDERED: SODIUM CHLORIDE 0.9% 500 ML IV ONE (09:33)
[2017-12-22] MEDS ORDERED: SODIUM CHLORIDE 0.9% 1,000 ML IV ONE (09:33)
--- NOTE | 2017-12-22 09:40 | ED ---
Altered Mental Status HPI - General Stated Complaint: Altered Mental Time Seen by Provider: 12/22/17 09:29 Source: EMS, RN notes reviewed, old records reviewed Mode of arrival: EMS - History of Present Illness Initial Comments: This 87-year-old female with a history of respiratory failure secondary to aspiration past no history of stroke who was last seen well at about 1900 hrs. last evening. Family tried her wake her up at 9 AM this morning or unsuccessful he tried again later unsuccessful they did call EMS. Patient was found to have left facial asymmetry left upper extremity was flaccid left lower extremity did move on evaluation glucose is 110. She felt warm no acute Was unavailable. No recent history of fever chills nausea vomiting sweats cough dysuria or other symptoms per family members MD Complaint: altered mental status, decreased responsiveness - Related Data Home Medications Medication Instructions Recorded Confirmed Metoprolol Tartrate [Lopressor] 50 mg PO BID 08/30/17 12/22/17 Spironolact/Hydrochlorothiazid 1 tab PO DAILY 08/30/17 12/22/17 [Aldactazide 25-25 MG] amLODIPine [Norvasc] 5 mg PO DAILY 08/30/17 12/22/17 Previous Rx's Medication Instructions Recorded Aspirin [Adult Low Dose Aspirin EC] 81 mg PO DAILY #30 tablet. 09/02/17 Atorvastatin [Lipitor] 20 mg PO HS #30 tab 09/02/17 Allergies Allergy/AdvReac Type Severity Reaction Status Date / Time No Known Allergies Allergy Verified 12/22/17 10:47 Review of Systems ROS Statement: Those systems with pertinent positive or pertinent negative responses have been documented in the HPI. ROS Other: All systems not noted in ROS Statement are negative. Limitations: ROS unobtainable due to patients medical condition Past Medical History Past Medical History: Hyperlipidemia, Hypertension History of Any Multi-Drug Resistant Organisms: None Reported Past Surgical History: No Surgical Hx Reported Past Anesthesia/Blood Transfusion Reactions: No Reported Reaction Past Psychological History: No Psychological Hx Reported Smoking Status: Never smoker Past Alcohol Use History: Unable to Obtain Past Drug Use History: None Reported - Past Family History Mother Family Medical History: Hypertension Father Family Medical History: Hypertension General Exam - General Exam Comments Initial Comments: This a well-developed well-nourished obtunded female with sonorous respirations the patient does have evidence of an NIH stroke scale 24 General appearance: obtunded Head exam: Present: atraumatic, normocephalic, normal inspection Eye exam: Present: normal appearance, PERRL, EOMI. Absent: scleral icterus, conjunctival injection, periorbital swelling ENT exam: Present: mucous membranes dry, other ((A she'll asymmetry flattening of the nasolabial fold compared to the right) Neck exam: Present: normal inspection. Absent: tenderness, meningismus, lymphadenopathy Respiratory exam: Present: decreased breath sounds Cardiovascular Exam: Present: regular rate, normal rhythm, normal heart sounds. Absent: systolic murmur, diastolic murmur, rubs, gallop, clicks GI/Abdominal exam: Present: soft, normal bowel sounds. Absent: distended, tenderness, guarding, rebound, rigid Rectal exam: Present: deferred Extremities exam: Present: normal capillary refill. Absent: normal inspection, full ROM Back exam: Present: normal inspection Neurological exam: Present: altered, motor sensory deficit (Patient appears have a flaccid left upper extremity left lower extremity right lower extremity to move the Babinski is negative). Absent: CN II-XII intact Psychiatric exam: Present: other (Unable to evaluate) Skin exam: Present: warm, dry, intact, normal color. Absent: rash Course Vital Signs 12/22/17 12/22/17 12/22/17 09:37 09:40 09:50 Temperature 99.0 F Pulse Rate 73 72 72 Respiratory 20 18 18 Rate Blood Pressure 146/65 142/63 150/65 O2 Sat by Pulse 93 L 95 95 Oximetry 12/22/17 12/22/17 12/22/17 10:05 10:20 10:35 Temperature Pulse Rate 76 72 72 Respiratory 18 18 18 Rate Blood Pressure 153/67 132/61 142/63 O2 Sat by Pulse 96 93 L 95 Oximetry 12/22/17 12/22/17 12/22/17 10:50 11:28 12:05 Temperature 98.0 F Pulse Rate 66 66 70 Respiratory 18 18 18 Rate Blood Pressure 140/64 128/60 144/65 O2 Sat by Pulse 95 96 96 Oximetry - Reevaluation(s) Reevaluation #1: 12/22/17 10:50 No information: The patient's niece did come to the emergency department see the patient reports are is now that the patient was awake alert and functional at 3 AM this morning. He CT has been ordered the initial CT noncontrast shows no acute processes. Reevaluation #2: 12/22/17 12:26 Reevaluation patient return from CAT scan shows no change Medical Decision Making - Medical Decision Making I did have a long discussion with the patient's family members. Elected to have the patient transfer to [facility] in [place]. I did discuss the case with Dr. Liu from neuro interventional was agreed to accept the patient transfer. After discussion with the transfer team they will notify the emergency department at [facility]. Patient will be transferred by ground at this time the patient is maintaining her airway with good vital signs. I did discuss this with the family members we will try to avoid to intubation at this time. - Lab Data Result diagrams: 12/22/17 09:46 12/22/17 09:46 Lab Results 12/22/17 12/22/17 12/22/17 Range/Units 09:40 09:46 09:46 WBC 7.2 (3.8-10.6) k/uL RBC 4.32 (3.80-5.40) m/uL Hgb 13.4 (11.4-16.0) gm/dL Hct 39.3 (34.0-46.0) % MCV 90.9 (80.0-100.0) fL MCH 30.9 (25.0-35.0) pg MCHC 34.0 (31.0-37.0) g/dL RDW 12.8 (11.5-15.5) % Plt Count 164 (150-450) k/uL Neutrophils % 84 % Lymphocytes % 9 % Monocytes % 5 % Eosinophils % 0 % Basophils % 0 % Neutrophils # 6.1 (1.3-7.7) k/uL Lymphocytes # 0.6 L (1.0-4.8) k/uL Monocytes # 0.4 (0-1.0) k/uL Eosinophils # 0.0 (0-0.7) k/uL Basophils # 0.0 (0-0.2) k/uL PT (9.0-12.0) sec INR (<1.2) APTT (22.0-30.0) sec Sodium (137-145) mmol/L Potassium (3.5-5.1) mmol/L Chloride (98-107) mmol/L Carbon Dioxide (22-30) mmol/L Anion Gap mmol/L BUN (7-17) mg/dL Creatinine (0.52-1.04) mg/dL Est GFR (CKD-EPI)AfAm (>60 ml/min/1.73 sqM) Est GFR (CKD-EPI)NonAf (>60 ml/min/1.73 sqM) Glucose (74-99) mg/dL POC Glucose (mg/dL) 201 H (75-99) mg/dL POC Glu Cover Operator ID Yanet Valerio Plasma Lactic Acid Quinn (0.7-2.0) mmol/L Calcium (8.4-10.2) mg/dL Magnesium (1.6-2.3) mg/dL Total Bilirubin (0.2-1.3) mg/dL AST (14-36) U/L ALT (9-52) U/L Alkaline Phosphatase (38-126) U/L Ammonia (<30) umol/L Total Creatine Kinase 94 (30-135) U/L CK-MB (CK-2) 1.9 (0.0-2.4) ng/mL CK-MB (CK-2) Rel Index 2.0 Troponin I <0.012 (0.000-0.034) ng/mL NT-Pro-B Natriuret Pep pg/mL Total Protein (6.3-8.2) g/dL Albumin (3.5-5.0) g/dL Urine Color Urine Appearance (Clear) Urine pH (5.0-8.0) Ur Specific Vernon (1.001-1.035) Urine Protein (Negative) Urine Glucose (UA) (Negative) Urine Ketones (Negative) Urine Blood (Negative) Urine Nitrite (Negative) Urine Bilirubin (Negative) Urine Urobilinogen (<2.0) mg/dL Ur Leukocyte Esterase (Negative) Urine Opiates Screen (NotDetected) Ur Oxycodone Screen (NotDetected) Urine Methadone Screen (NotDetected) Ur Propoxyphene Screen (NotDetected) Ur Barbiturates Screen (NotDetected) U Tricyclic Antidepress (NotDetected) Ur Phencyclidine Scrn (NotDetected) Ur Amphetamines Screen (NotDetected) U Methamphetamines Scrn (NotDetected) U Benzodiazepines Scrn (NotDetected) Urine Cocaine Screen (NotDetected) U Marijuana (THC) Screen (NotDetected) 12/22/17 12/22/17 12/22/17 Range/Units 09:46 09:46 09:46 WBC (3.8-10.6) k/uL RBC (3.80-5.40) m/uL Hgb (11.4-16.0) gm/dL Hct (34.0-46.0) % MCV (80.0-100.0) fL MCH (25.0-35.0) pg MCHC (31.0-37.0) g/dL RDW (11.5-15.5) % Plt Count (150-450) k/uL Neutrophils % % Lymphocytes % % Monocytes % % Eosinophils % % Basophils % % Neutrophils # (1.3-7.7) k/uL Lymphocytes # (1.0-4.8) k/uL Monocytes # (0-1.0) k/uL Eosinophils # (0-0.7) k/uL Basophils # (0-0.2) k/uL PT 10.8 (9.0-12.0) sec INR 1.1 (<1.2) APTT 22.0 (22.0-30.0) sec Sodium 137 (137-145) mmol/L Potassium 4.1 (3.5-5.1) mmol/L Chloride 101 (98-107) mmol/L Carbon Dioxide 26 (22-30) mmol/L Anion Gap 10 mmol/L BUN 21 H (7-17) mg/dL Creatinine 0.48 L (0.52-1.04) mg/dL Est GFR (CKD-EPI)AfAm >90 (>60 ml/min/1.73 sqM) Est GFR (CKD-EPI)NonAf 90 (>60 ml/min/1.73 sqM) Glucose 184 H (74-99) mg/dL POC Glucose (mg/dL) (75-99) mg/dL POC Glu Cover Operator ID Plasma Lactic Acid Quinn 1.3 (0.7-2.0) mmol/L Calcium 9.1 (8.4-10.2) mg/dL Magnesium 1.7 (1.6-2.3) mg/dL Total Bilirubin 0.7 (0.2-1.3) mg/dL AST 19 (14-36) U/L ALT 28 (9-52) U/L Alkaline Phosphatase 50 (38-126) U/L Ammonia <9 (<30) umol/L Total Creatine Kinase (30-135) U/L CK-MB (CK-2) (0.0-2.4) ng/mL CK-MB (CK-2) Rel Index Troponin I (0.000-0.034) ng/mL NT-Pro-B Natriuret Pep pg/mL Total Protein 6.8 (6.3-8.2) g/dL Albumin 3.9 (3.5-5.0) g/dL Urine Color Urine Appearance (Clear) Urine pH (5.0-8.0) Ur Specific Vernon (1.001-1.035) Urine Protein (Negative) Urine Glucose (UA) (Negative) Urine Ketones (Negative) Urine Blood (Negative) Urine Nitrite (Negative) Urine Bilirubin (Negative) Urine Urobilinogen (<2.0) mg/dL Ur Leukocyte Esterase (Negative) Urine Opiates Screen (NotDetected) Ur Oxycodone Screen (NotDetected) Urine Methadone Screen (NotDetected) Ur Propoxyphene Screen (NotDetected) Ur Barbiturates Screen (NotDetected) U Tricyclic Antidepress (NotDetected) Ur Phencyclidine Scrn (NotDetected) Ur Amphetamines Screen (NotDetected) U Methamphetamines Scrn (NotDetected) U Benzodiazepines Scrn (NotDetected) Urine Cocaine Screen (NotDetected) U Marijuana (THC) Screen (NotDetected) 12/22/17 12/22/17 Range/Units 09:46 10:40 WBC (3.8-10.6) k/uL RBC (3.80-5.40) m/uL Hgb (11.4-16.0) gm/dL Hct (34.0-46.0) % MCV (80.0-100.0) fL MCH (25.0-35.0) pg MCHC (31.0-37.0) g/dL RDW (11.5-15.5) % Plt Count (150-450) k/uL Neutrophils % % Lymphocytes % % Monocytes % % Eosinophils % % Basophils % % Neutrophils # (1.3-7.7) k/uL Lymphocytes # (1.0-4.8) k/uL Monocytes # (0-1.0) k/uL Eosinophils # (0-0.7) k/uL Basophils # (0-0.2) k/uL PT (9.0-12.0) sec INR (<1.2) APTT (22.0-30.0) sec Sodium (137-145) mmol/L Potassium (3.5-5.1) mmol/L Chloride (98-107) mmol/L Carbon Dioxide (22-30) mmol/L Anion Gap mmol/L BUN (7-17) mg/dL Creatinine (0.52-1.04) mg/dL Est GFR (CKD-EPI)AfAm (>60 ml/min/1.73 sqM) Est GFR (CKD-EPI)NonAf (>60 ml/min/1.73 sqM) Glucose (74-99) mg/dL POC Glucose (mg/dL) (75-99) mg/dL POC Glu Cover Operator ID Plasma Lactic Acid Quinn (0.7-2.0) mmol/L Calcium (8.4-10.2) mg/dL Magnesium (1.6-2.3) mg/dL Total Bilirubin (0.2-1.3) mg/dL AST (14-36) U/L ALT (9-52) U/L Alkaline Phosphatase (38-126) U/L Ammonia (<30) umol/L Total Creatine Kinase (30-135) U/L CK-MB (CK-2) (0.0-2.4) ng/mL CK-MB (CK-2) Rel Index Troponin I (0.000-0.034) ng/mL NT-Pro-B Natriuret Pep 568 pg/mL Total Protein (6.3-8.2) g/dL Albumin (3.5-5.0) g/dL Urine Color Yellow Urine Appearance Clear (Clear) Urine pH 7.0 (5.0-8.0) Ur Specific Vernon 1.016 (1.001-1.035) Urine Protein Negative (Negative) Urine Glucose (UA) Negative (Negative) Urine Ketones Negative (Negative) Urine Blood Negative (Negative) Urine Nitrite Negative (Negative) Urine Bilirubin Negative (Negative) Urine Urobilinogen <2.0 (<2.0) mg/dL Ur Leukocyte Esterase Negative (Negative) Urine Opiates Screen Detected H (NotDetected) Ur Oxycodone Screen Not Detected (NotDetected) Urine Methadone Screen Not Detected (NotDetected) Ur Propoxyphene Screen Not Detected (NotDetected) Ur Barbiturates Screen Not Detected (NotDetected) U Tricyclic Antidepress Not Detected (NotDetected) Ur Phencyclidine Scrn Not Detected (NotDetected) Ur Amphetamines Screen Not Detected (NotDetected) U Methamphetamines Scrn Not Detected (NotDetected) U Benzodiazepines Scrn Not Detected (NotDetected) Urine Cocaine Screen Not Detected (NotDetected) U Marijuana (THC) Screen Not Detected (NotDetected) - EKG Data -: EKG Interpreted by Sc EKG shows normal: sinus rhythm, axis, intervals, QRS complexes, ST-T waves (EKG shows normal sinus rhythm a 71 appear interval 156 82 QT since QTC 4:30/[address]-T wave changes) Rate: normal - Radiology Data Radiology results: report reviewed, image reviewed (I did review the imaging and reports and did discuss the case with Dr. Sharma patient does have evidence of a right internal carotid artery occlusion there is collateral circulation to both hemispheres.) Critical Care Time Critical Care Time: Yes Critical Care Time: 39 minutes of critical care time which includes initial monitoring the EMS run and discussed with paramedics history physical labs x-rays reevaluation patient several occasions discuss with several family members. Discussion with the transfer team at [facility] discussion with paramedics and documentation of the above Disposition Clinical Impression: Cerebrovascular accident, Occlusion of right internal carotid artery Disposition: OTHER INSTITUTION NOT DEFINED Condition: Critical Is patient prescribed a controlled substance at d/c from ED?: No Referrals: Suraj King DO [Primary Care Provider] - 1-2 days - Out of Hospital Transfer - Req. Specs Out of Hospital Transfer - Requested Specifics: Neurological ICU
[2017-12-22 09:42] LABS: Glucose,Whole Blood 201 mg/dL (75-99)
[2017-12-22 10:03] LABS: Basophils % (A) 0 %; Eosinophils % (A) 0 %; HCT 39.3 % (34.0-46.0); HGB 13.4 gm/dL (11.4-16.0); Lymphocytes # (A) 0.6 k/uL (1.0-4.8); Lymphocytes % (A) 9 %; MCH 30.9 pg (25.0-35.0); MCV 90.9 fL (80.0-100.0); Mean Platelet Volume 6.7; Monocytes # (A) 0.4 k/uL (0-1.0); Monocytes % (A) 5 %; Neutrophils # (A) 6.1 k/uL (1.3-7.7); Neutrophils % (A) 84 %; Platelet Count 164 k/uL (150-450); RBC 4.32 m/uL (3.80-5.40); RDW 12.8 % (11.5-15.5); WBC 7.2 k/uL (3.8-10.6)
[2017-12-22 10:15] LABS: ALT 28 U/L (9-52); AST 19 U/L (14-36); Albumin 3.9 g/dL (3.5-5.0); Alkaline Phosphatase 50 U/L (38-126); Anion Gap 10 mmol/L; Blood Urea Nitrogen 21 mg/dL (7-17); Calcium 9.1 mg/dL (8.4-10.2); Carbon Dioxide 26 mmol/L (22-30); Chloride 101 mmol/L (98-107); Glucose 184 mg/dL (74-99); Magnesium 1.7 mg/dL (1.6-2.3); Potassium 4.1 mmol/L (3.5-5.1); Sodium 137 mmol/L (137-145); Total Bilirubin 0.7 mg/dL (0.2-1.3); Total Protein 6.8 g/dL (6.3-8.2)
[2017-12-22 10:19] LABS: Ammonia <9 umol/L (<30); Lactic Acid, Venous 1.3 mmol/L (0.7-2.0)
--- NOTE | 2017-12-22 10:21 | CT ---
EXAMINATION TYPE: CT brain wo con DATE OF EXAM: 12/22/2017 COMPARISON: None HISTORY: Altered mental status changes CT DLP: 1059.10 mGycm Automated exposure control for dose reduction was used. FINDINGS: Intracranial atherosclerotic changes. Moderate generalized degenerative change with diffuse low-atten uation throughout the white matter which is nonspecific. Calvarium intact. No acute hemorrhage, mass effect or midline shift. Low attenuation in the basal ganglia bilaterally suggestive of remote infarction. IMPRESSION: DEGENERATIVE AND NONSPECIFIC WHITE MATTER CHANGES MOST TYPICAL REMOTE MICROVASCULAR ISCHEMIA. NO ACUT E INTRACRANIAL OR MASS EFFECT.
[2017-12-22 10:23] LABS: INR 1.1 (<1.2); Prothrombin Time 10.8 sec (9.0-12.0)
[2017-12-22 10:30] LABS: Creatine Kinase 94 U/L (30-135)
[2017-12-22 10:42] LABS: Creatine Kinase MB 1.9 ng/mL (0.0-2.4); Troponin I <0.012 ng/mL (0.000-0.034)
--- NOTE | 2017-12-22 10:43 | XR ---
EXAMINATION TYPE: XR chest 1V portable DATE OF EXAM: 12/22/2017 COMPARISON: Prior chest x-ray 09/02/2017 HISTORY: Altered mental status TECHNIQUE: Single frontal view of the chest is obtained. FINDINGS: Patient is rotated and there are overlying cardiac leads. Interstitium is increased. It is enlarged. No evident pneumothorax or pleural effusion. The aorta is dense. Central vascularity is pr ominent. IMPRESSION: Correlate for pulmonary venous hypertension and interstitial edema. Rotated exam. Follow -up recommended.
[2017-12-22 10:51] VITALS: RESP 18
[2017-12-22 10:54] LABS: Appearance,Urine Clear (Clear); Bilirubin,Urine Negative (Negative); Blood,Urine Negative (Negative); Color,Urine Yellow; Glucose,Urine (UA) Negative (Negative); Ketones,Urine Negative (Negative); Leukocyte Esterase,Urine Negative (Negative); Nitrite,Urine Negative (Negative); Protein,Urine Negative (Negative); Specific Gravity,Urine 1.016 (1.001-1.035); Urobilinogen,Urine <2.0 mg/dL (<2.0)
[2017-12-22 11:41] VITALS: TEMP 98
[2017-12-22 11:50] LABS: Amphetamine Screen,Urine Not Detected (NotDetected); Barbiturate Screen,Urine Not Detected (NotDetected); Benzodiazepines Screen,Urine Not Detected (NotDetected); Cocaine Screen,Urine Not Detected (NotDetected); Methadone Screen, Urine Not Detected (NotDetected); Opiate Screen,Urine Detected (NotDetected); Oxycodone Screen, Urine Not Detected (NotDetected); Phencyclidine Screen,Urine Not Detected (NotDetected); Tricyclic Antidepressant,Urine Not Detected (NotDetected); Urn Cannabinoid Scrn Not Detected (NotDetected)
--- NOTE | 2017-12-22 12:15 | CT ---
EXAMINATION TYPE: CT angio head neck DATE OF EXAM: 12/22/2017 HISTORY: Mental status change COMPARISON: 12/22/2017 CT DLP: 496.4 mGycm. Automated Exposure Control for Dose Reduction was Utilized. TECHNIQUE: CTA scan of the head and neck is performed , patient injected with 100 mL of Isovue 370, axial images are obtained, coronal and sagittal reformatted images are reviewed. Three-D reconstructe d images are created on an independent workstation and reviewed. FINDINGS: Results of the exam were verbally communicated to the ER physician prior to the exam being ready for dictation. Just above the level of the right common carotid bifurcation there is abrupt occlusion of the proxima l right ICA with low-density attenuation extending to the level the carotid siphon. The common carotid artery was patent to the level aortic arch. The left common carotid artery, ICA, and ECA are patent. Intracranially there is asymmetry with a dominant left vertebral artery. Right vertebral artery is di minutive in size likely". Vertebral basilar system is patent. There is filling of the bilateral MCA a nd RUPALI branches. Within the upper lung arias bilaterally appears to be bilateral areas of nodularity for which dedica marcellus CT scan is recommended to assess for possible malignancy or infiltrate. Ventricular prominence is compatible with degenerative change and there is nonspecific white matter c hanges most typical remote microvascular ischemia. Intracranially no sizable aneurysm is identified. Hypertrophic and degenerative change of the vertebral column. Multilevel facet arthropathy. IMPRESSION: 1. Abrupt occlusion proximal right ICA extending to the carotid siphon. This could possibly be second octaviano to acute occlusion on residual or existing stenosis. Carotid dissection should also be considered . 2. No sizable aneurysm or vascular malformation. There is filling of the intracranial middle cerebral and anterior cerebral arteries bilaterally. Vertebral basilar and posterior cerebral arteries also a ppear to enhance. 3. Nodular pattern to both upper lung zones which are only partially included. Underlying neoplasm in the differential diagnosis. Inflammatory change or infiltrate also consideration. Correlate with ded icated CT of the chest as the patient's condition tolerates.
[2017-12-22 12:16] VITALS: BP 144/65; PULSE 70
== END 2017-12-22 12:59 | disposition other institution (70) ==
LOC: EC 09:29
DX: I63.9 Cerebral infarction, unspecified (principal); I65.21 Occlusion and stenosis of right carotid artery; I10 Essential (primary) hypertension; Z79.899 Other long term (current) drug therapy
CPT/HCPCS: 36415; 93005; 83880; 80053; 82140; 82550; 82553; 83605; 83735; 84484; 85025; 85610; 85730; 81003; 87040; 80306; 71045; 70496; 70450; 70498; 99291; 96360; 96361 ×2; Q9967

== ENCOUNTER 2018-01-06 08:18 | Emergency (ER) | payer MEDICARE, BC ==
[2018-01-06 08:31] VITALS: RESP 18; TEMP 97.5
--- NOTE | 2018-01-06 08:54 | ED ---
Recheck HPI - General Chief Complaint: Recheck/Abnormal Lab/Rx Stated Complaint: bleeding Time Seen by Provider: 01/06/18 08:28 Source: EMS, RN notes reviewed Mode of arrival: EMS Limitations: language barrier, physical limitation - History of Present Illness Initial Comments: This an 87-year-old female presents emergency department via EMS from [facility] on the leg for bleeding around her PEG tube. Patient is at [facility] for recent CVA and full-time care. Patient is nonverbal at this time. Patient reportedly had bleeding around her PEG tube site with vidal bleeding and clot at this time. Patient was sent in for possible cauterization. Patient has had no other symptoms per staff - Related Data Home Medications Medication Instructions Recorded Confirmed Metoprolol Tartrate [Lopressor] 50 mg PEG/G-TUBE BID 08/30/17 01/06/18 Aspirin [Adult Low Dose Aspirin EC] 81 mg PEG/G-TUBE DAILY 01/06/18 01/06/18 Atorvastatin [Lipitor] 20 mg PEG/G-TUBE HS 01/06/18 01/06/18 Insulin Aspart [NovoLOG See Protocol SQ ACHS 01/06/18 01/06/18 (formulary)] Insulin Glargine,Hum.rec.anlog 15 unit SQ DAILY 01/06/18 01/06/18 [Basaglar Kwikpen U-100] Polyethylene Glycol 3350 [Miralax] 17 gm PEG/G-TUBE DAILY 01/06/18 01/06/18 Ranitidine Syrup [Zantac Syrup] 75 mg PEG/G-TUBE Q12HR 01/06/18 01/06/18 Allergies Allergy/AdvReac Type Severity Reaction Status Date / Time No Known Allergies Allergy Verified 01/06/18 08:44 Review of Systems ROS Statement: Those systems with pertinent positive or pertinent negative responses have been documented in the HPI. ROS Other: All systems not noted in ROS Statement are negative. Past Medical History Past Medical History: CVA/TIA, Hyperlipidemia, Hypertension History of Any Multi-Drug Resistant Organisms: None Reported Past Surgical History: No Surgical Hx Reported Past Anesthesia/Blood Transfusion Reactions: No Reported Reaction Past Psychological History: No Psychological Hx Reported Smoking Status: Never smoker Past Alcohol Use History: Unable to Obtain Past Drug Use History: None Reported - Past Family History Mother Family Medical History: Hypertension Father Family Medical History: Hypertension General Exam Limitations: language barrier, physical limitation General appearance: alert, in no apparent distress Respiratory exam: Present: normal lung sounds bilaterally. Absent: respiratory distress, wheezes, rales, rhonchi, stridor Cardiovascular Exam: Present: regular rate, normal rhythm, normal heart sounds. Absent: systolic murmur, diastolic murmur, rubs, gallop, clicks GI/Abdominal exam: Present: other (Large blood clot noted around the PEG tube no active bleeding) Neurological exam: Present: alert. Absent: oriented X3 Skin exam: Present: warm, dry, intact, normal color. Absent: rash Course Vital Signs 01/06/18 08:24 Temperature 97.5 F L Pulse Rate 104 H Respiratory 18 Rate Blood Pressure 144/74 O2 Sat by Pulse 99 Oximetry Procedures - Procedures Initial comment: The clot was removed around the PEG tube, cleaned and dressing was applied. Patient has been observed for one hour and 30 minutes with no rebleeding. Patient will be discharged back to [facility]. Medical Decision Making - Medical Decision Making 87-year-old female presented from [facility] for bleeding from her PEG tube site. This was placed on Thursday at [facility]. Patient had a blood clot noted around the PEG tube site which was removed is been no rebleeding. Dressing was applied and will be discharged back to [facility]. Disposition Clinical Impression: Leaking PEG tube Disposition: HOME SELF-CARE Condition: Stable Instructions: How to Use and Care for Your PEG Tube (ED) Additional Instructions: Please return to the Emergency Department if symptoms worsen or any other concerns. Is patient prescribed a controlled substance at d/c from ED?: No Referrals: Leslie Moore MD [Primary Care Provider] - 1-2 days Time of Disposition: 10:42
[2018-01-06 10:56] VITALS: BP 158/76; PULSE 116
== END 2018-01-06 12:20 | disposition home or self-care (01) ==
LOC: EC 08:18
DX: K94.23 Gastrostomy malfunction (principal); E78.5 Hyperlipidemia, unspecified; I10 Essential (primary) hypertension; Z79.4 Long term (current) use of insulin; Z79.82 Long term (current) use of aspirin; Z79.899 Other long term (current) drug therapy
CPT/HCPCS: 99283

== ENCOUNTER → 2018-02-12 | Outpatient (CLI) | payer MEDICARE, BC ==
--- NOTE | 2018-02-12 13:40 | CT ---
EXAMINATION TYPE: CT brain wo con DATE OF EXAM: 02/12/2018 HISTORY: Follow up post [place]oke. Altered mental status. CT DLP: 801.6 mGycm. Automated Exposure Control for Dose Reduction was Utilized. TECHNIQUE: CT scan of the head is performed without contrast. COMPARISON: CT brain dated 12/22/2017. FINDINGS: There is no acute intracranial hemorrhage or midline shift identified. There is diffuse v entricular and sulcal prominence consistent with diffuse age-related cerebral atrophy. There is low- attenuation in the periventricular white matter consistent with chronic small vessel ischemic change. Areas of new low-attenuation right frontal lobe involving centrum some mild bowing coronal radiata e xtending inferiorly to involve the right internal capsule are now identified best axial images 20 thr ough 31 consistent with evolving subacute infarct at this level. Old infarct medial right occipital l obe near axial image 24 is redemonstrated. The globes are intact and the visualized sinuses are janes r. IMPRESSION: No acute intracranial hemorrhage or midline shift. There is moderate diffuse age-relate d cerebral atrophy and chronic small vessel ischemic change as well as old medial right no septal lob e infarct redemonstrated. There is larger evolving subacute infarct right frontal lobe noted. A Yellow level critical message alert has been initiated for Leslie Moore MD via the [employer] Critical Results System on 02/12/2018 1:38 PM. This message alert has been sent to Leslie Moore MD via the preferences provided by the clinician for the receipt of Radiology Critical Findings. Mess age ID [id number].
== END | disposition home or self-care (01) ==
LOC: RADCTMAIN 12:57
PROVIDERS: ATTEND Family Medicine
DX: G31.1 Senile degeneration of brain, not elsewhere classified (principal); I67.82 Cerebral ischemia; I63.9 Cerebral infarction, unspecified
CPT/HCPCS: 70450

== ENCOUNTER → 2018-08-20 | Outpatient (CLI) | payer MEDICARE, BC, OTHER ==
--- NOTE | 2018-08-20 12:57 | FL ---
EXAMINATION TYPE: FL barium swallow w video DATE OF EXAM: 08/20/2018 COMPARISON: NONE HISTORY: Dysphagia. FINDINGS: Patient was evaluated in real-time fluoroscopy in the lateral projection while ingesting barium mixe d with liquids and solids. Free spill of oral contents noted into the esophagus. No vidal aspiration. Poor motility of the epiglottis was noted, there are vallecular residuals noted during the exam. Lar yngeal penetration noted. 2 minutes 48 seconds supplied fluoroscopy time. No images obtained. See dictated report from speech pathology.
== END ==
LOC: RADFLMAIN 10:53
PROVIDERS: ATTEND Family Medicine
DX: R13.10 Dysphagia, unspecified (principal); R05 Cough
CPT/HCPCS: 74230

== ENCOUNTER 2018-09-28 15:49 | Emergency (ER) | payer MEDICARE, BC, OTHER ==
[2018-09-28] MEDS ORDERED: ZINC OXIDE 20% OINT 28.4 GM TUBE TOPICAL STA (18:28)
--- NOTE | 2018-09-28 18:28 | ED ---
Skin/Abscess/FB HPI - General Chief complaint: Skin/Abscess/Foreign Body Stated complaint: ABCESS RT BUTTOCKS Time Seen by Provider: 09/28/18 16:27 Source: EMS, old records reviewed, Caregiver Mode of arrival: EMS Limitations: physical limitation - History of Present Illness Initial comments: Patient is a 88-year-old female who presents via EMS from detention with complaints of a sore on the right side of her buttocks. 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 Patient admits to having some pain in the right buttocks. On arrival patient is afebrile, vital signs stable. No other complaints from patient at this time. - Related Data Home Medications Medication Instructions Recorded Confirmed Metoprolol Tartrate [Lopressor] 50 mg PO BID@0900,209908/30/17 09/28/18 Aspirin [Adult Low Dose Aspirin EC] 81 mg PO DAILY@89901/06/18 09/28/18 Atorvastatin [Lipitor] 20 mg PO HS@209901/06/18 09/28/18 Polyethylene Glycol 3350 [Miralax] 17 gm PO DAILY PRN 01/06/18 09/28/18 Acetaminophen Tab [Tylenol Tab] 650 mg PO BID@0900,209909/28/18 09/28/18 Apixaban [Eliquis] 2.5 mg PO BID@0900,169909/28/18 09/28/18 Bisacodyl [Dulcolax] 10 mg RECTAL DAILY PRN 09/28/18 09/28/18 Ciprofloxacin HCl [Cipro] 500 mg PO BID@0900,209909/28/18 09/28/18 Furosemide [Lasix] 20 mg PO DAILY@89909/28/18 09/28/18 Mirtazapine [Remeron] 15 mg PO DAILY@169909/28/18 09/28/18 Pramox-Calamine 1-8% Lotion 1 applic TOPICAL TID PRN 09/28/18 09/28/18 [Caladryl] Ranitidine HCl [Zantac] 150 mg PO DAILY@89909/28/18 09/28/18 Spironolactone [Aldactone] 12.5 mg PO DAILY@89909/28/18 09/28/18 Allergies Allergy/AdvReac Type Severity Reaction Status Date / Time No Known Allergies Allergy Verified 09/28/18 17:01 Review of Systems ROS Statement: Those systems with pertinent positive or pertinent negative responses have been documented in the HPI. ROS Other: All systems not noted in ROS Statement are negative. Past Medical History Past Medical History: CVA/TIA, Hyperlipidemia, Hypertension History of Any Multi-Drug Resistant Organisms: None Reported Past Surgical History: No Surgical Hx Reported Past Anesthesia/Blood Transfusion Reactions: No Reported Reaction Past Psychological History: No Psychological Hx Reported Smoking Status: Never smoker Past Alcohol Use History: Unable to Obtain Past Drug Use History: None Reported - Past Family History Mother Family Medical History: Hypertension Father Family Medical History: Hypertension General Exam - General Exam Comments Initial Comments: GENERAL: Well-appearing, well-nourished and in no acute distress. 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 HEAD: Atraumatic, normocephalic. EYES: Pupils equal round and reactive to light, extraocular movements intact, sclera anicteric, conjunctiva are normal. ENT: TMs normal, nares patent, oropharynx clear without exudates. Moist mucous membranes. NECK: Normal range of motion, supple without lymphadenopathy or JVD. LUNGS: Breath sounds clear to auscultation bilaterally and equal. No wheezes rales or rhonchi. HEART: Regular rate and rhythm without murmurs, rubs or gallops. ABDOMEN: Soft, nontender, normoactive bowel sounds. No guarding, no rebound. No masses appreciated. : Deferred EXTREMITIES: Normal range of motion, no pitting or edema. No clubbing or cyanosis. NEUROLOGICAL: Cranial nerves II through XII grossly intact. Normal speech, normal gait. PSYCH: Normal mood, normal affect. SKIN: Warm, Dry, normal turgor, no rashes. Patient has small area of skin breakdown on the right superior buttock area with a very small break in this and that is draining fluid. There is no sign of surrounding erythema, abscess. Limitations: physical limitation Course Vital Signs 09/28/18 09/28/18 09/28/18 16:05 18:15 20:05 Temperature 98.8 F 98.3 F Pulse Rate 65 81 66 Respiratory 20 20 18 Rate Blood Pressure 128/48 132/56 137/71 O2 Sat by Pulse 99 99 99 Oximetry Medical Decision Making - Medical Decision Making Patient is a 88-year-old female who presents from detention with a sore on her right buttocks. Patient is aphasic from previous stroke and is very hard to understand. There is nobody else here with her. On exam patient has very mild stage I ulcer of the right buttocks that is draining a little bit. There is no surrounding erythema or abscess noted. Patient will be discharged back to detention and will use a skin barrier as discussed. Case discussed with Dr. Shearer who agrees to this plan of care. Return parameters were discussed with the patient she verbalized understanding. Disposition Clinical Impression: Stage 1 decubitus ulcer Disposition: HOME SELF-CARE Condition: Stable Instructions (If sedation given, give patient instructions): How to Prevent Pressure Injuries (ED) Additional Instructions: Please return to the Emergency Department if symptoms worsen or any other concerns. Keep area dry and clean and apply skin barrier Watch for signs of infection. Is patient prescribed a controlled substance at d/c from ED?: No Referrals: Leslie Moore MD [Primary Care Provider] - 1-2 days
[2018-09-28 21:03] VITALS: BP 137/71; PULSE 66; RESP 18; TEMP 98.3
== END 2018-09-28 20:05 | disposition home or self-care (01) ==
LOC: EC 15:49
DX: L89.311 Pressure ulcer of right buttock, stage 1 (principal); I69.920 Aphasia following unspecified cerebrovascular disease; I10 Essential (primary) hypertension; E78.5 Hyperlipidemia, unspecified; Z79.82 Long term (current) use of aspirin; Z79.01 Long term (current) use of anticoagulants; Z79.899 Other long term (current) drug therapy
CPT/HCPCS: 99283

== ENCOUNTER → 2019-03-04 | Outpatient (CLI) | payer MEDICARE, OTHER ==
--- NOTE | 2019-03-04 12:11 | FL ---
Modified barium swallow. HISTORY: Dysphagia. Modified barium swallow was performed with the department of speech pathology. The patient was prese nted with various consistencies of barium. One episode of aspiration was noted with thin liquid barium. Full report is to follow from the depart ment of speech pathology. Impression: One episode of aspiration was noted with thin liquid barium.
== END | disposition home or self-care (01) ==
LOC: RADFLMAIN 09:53
PROVIDERS: ATTEND Family Medicine
DX: R05 Cough (principal)
CPT/HCPCS: 74230

== ENCOUNTER 2019-10-05 01:17 | Emergency (ER) | payer MEDICARE, BC, OTHER ==
[2019-10-05 01:33] VITALS: RESP 18
--- NOTE | 2019-10-05 01:33 | ED ---
Lower Extremity Injury HPI - General Chief Complaint: Extremity Injury, Lower Stated Complaint: ankle pain Time Seen by Provider: 10/05/19 01:23 Source: EMS, RN notes reviewed, old records reviewed Mode of arrival: EMS Limitations: physical limitation - History of Present Illness Initial Comments: This is a 9-year-old female of altered mental status brought in by EMS for evaluation of right ankle fracture. Patient is unable to give history of complaint unknown mechanism of injury. Last patient had outpatient x-ray which is positive for fracture MD Complaint: ankle injury -: unknown Injury: Ankle: Right Type of Injury: unknown Place: SNF Severity: moderate Severity scale (1-10): 7 Improves With: nothing Worsens With: nothing (patient is non ambulatory) Context: other (unknown) Associated Symptoms: swelling Treatments Prior to Arrival: splint - Related Data Home Medications Medication Instructions Recorded Confirmed Metoprolol Tartrate [Lopressor] 50 mg PO BID@0900,209908/30/17 09/28/18 Aspirin [Adult Low Dose Aspirin EC] 81 mg PO DAILY@89901/06/18 09/28/18 Atorvastatin [Lipitor] 20 mg PO HS@209901/06/18 09/28/18 Polyethylene Glycol 3350 [Miralax] 17 gm PO DAILY PRN 01/06/18 09/28/18 Acetaminophen Tab [Tylenol Tab] 650 mg PO BID@0900,209909/28/18 09/28/18 Apixaban [Eliquis] 2.5 mg PO BID@0900,169909/28/18 09/28/18 Ciprofloxacin HCl [Cipro] 500 mg PO BID@0900,209909/28/18 09/28/18 Furosemide [Lasix] 20 mg PO DAILY@89909/28/18 09/28/18 Mirtazapine [Remeron] 15 mg PO DAILY@169909/28/18 09/28/18 Pramox-Calamine 1-8% Lotion 1 applic TOPICAL TID PRN 09/28/18 09/28/18 [Caladryl] Ranitidine HCl [Zantac] 150 mg PO DAILY@89909/28/18 09/28/18 Spironolactone [Aldactone] 12.5 mg PO DAILY@89909/28/18 09/28/18 bisacodyL [Dulcolax] 10 mg RECTAL DAILY PRN 09/28/18 09/28/18 Allergies Allergy/AdvReac Type Severity Reaction Status Date / Time No Known Allergies Allergy Verified 10/05/19 01:33 Review of Systems ROS Statement: Those systems with pertinent positive or pertinent negative responses have been documented in the HPI. ROS Other: All systems not noted in ROS Statement are negative. Past Medical History Past Medical History: CVA/TIA, Hyperlipidemia, Hypertension Additional Past Medical History / Comment(s): left sided defecits, dysphagia, aphagia History of Any Multi-Drug Resistant Organisms: None Reported Past Surgical History: No Surgical Hx Reported Past Anesthesia/Blood Transfusion Reactions: No Reported Reaction Past Psychological History: No Psychological Hx Reported Smoking Status: Never smoker Past Alcohol Use History: Unable to Obtain Past Drug Use History: None Reported - Past Family History Mother Family Medical History: Hypertension Father Family Medical History: Hypertension General Exam Limitations: physical limitation General appearance: alert, in no apparent distress Head exam: Present: atraumatic, normocephalic, normal inspection Eye exam: Present: normal appearance, PERRL, EOMI. Absent: scleral icterus, conjunctival injection, periorbital swelling ENT exam: Present: normal exam, mucous membranes moist Neck exam: Present: normal inspection. Absent: tenderness, meningismus, lymphadenopathy Respiratory exam: Present: normal lung sounds bilaterally. Absent: respiratory distress, wheezes, rales, rhonchi, stridor Cardiovascular Exam: Present: regular rate, normal rhythm, normal heart sounds. Absent: systolic murmur, diastolic murmur, rubs, gallop, clicks GI/Abdominal exam: Present: soft, normal bowel sounds. Absent: distended, tenderness, guarding, rebound, rigid Extremities exam: Present: normal inspection, full ROM, normal capillary refill. Absent: tenderness, pedal edema, joint swelling, calf tenderness Back exam: Present: normal inspection Neurological exam: Present: alert, oriented X3, CN II-XII intact Psychiatric exam: Present: normal affect, normal mood Skin exam: Present: warm, dry, intact, normal color. Absent: rash Course Vital Signs 10/05/19 10/05/19 01:27 02:57 Temperature 98 F 97.3 F L Pulse Rate 69 66 Respiratory 18 18 Rate Blood Pressure 141/59 131/62 O2 Sat by Pulse 95 95 Oximetry - Reevaluation(s) Reevaluation #1: Medical record is reviewed Patient symptoms are resolved Patient informed results were discharge Medical Decision Making - Medical Decision Making 89 female with unknown mechanism injury of right ankle fracture. Ankle was splinted and brace here in the ER patient can be discharged - Radiology Data Radiology results: report reviewed (X-ray right ankle is positive for fracture) Disposition Clinical Impression: Fracture of right ankle, lateral malleolus Disposition: HOME SELF-CARE Condition: Fair Instructions (If sedation given, give patient instructions): Ankle Fracture (ED) Is patient prescribed a controlled substance at d/c from ED?: No Referrals: Leslie Moore MD [Primary Care Provider] - 1-2 days
--- NOTE | 2019-10-05 01:43 | XR ---
EXAMINATION TYPE: XR ankle complete RT DATE OF EXAM: 10/05/2019 COMPARISON: NONE HISTORY: Ankle pain TECHNIQUE: 3 views FINDINGS: There is nondisplaced oblique fracture of the distal fibula. Ankle mortise is anatomic. The re is no dislocation. There is plantar calcaneal spurring. IMPRESSION: Acute nondisplaced fracture of the distal fibula.
[2019-10-05 02:58] VITALS: BP 131/62; PULSE 66; TEMP 97.3
== END 2019-10-05 02:57 | disposition home or self-care (01) ==
LOC: EC 01:17
DX: S82.61XA Displaced fracture of lateral malleolus of right fibula, initial encounter for closed fracture (principal); I10 Essential (primary) hypertension; E78.5 Hyperlipidemia, unspecified; Z79.82 Long term (current) use of aspirin; Z79.01 Long term (current) use of anticoagulants; Z79.899 Other long term (current) drug therapy; Z86.73 Personal history of transient ischemic attack (TIA), and cerebral infarction without residual deficits; X58.XXXA Exposure to other specified factors, initial encounter
CPT/HCPCS: 29515; 99284